=== PATIENT | female | born 1955 | race Caucasian/White ===

== ENCOUNTER 2016-11-02 14:58 | Outpatient (CLI) | payer OTHER | END 2016-11-02 14:59 | disposition home or self-care (01) | DX: R05 Cough (principal); R68.83 Chills (without fever); R61 Generalized hyperhidrosis ==

== ENCOUNTER 2016-11-23 09:23 | Outpatient (CLI) | payer OTHER | END 2016-11-23 09:24 | disposition home or self-care (01) | DX: Z53.9 Procedure and treatment not carried out, unspecified reason (principal) ==

== ENCOUNTER 2016-12-10 09:25 | Outpatient (CLI) | payer OTHER | END 2016-12-10 09:26 | disposition home or self-care (01) | DX: R22.1 Localized swelling, mass and lump, neck (principal) ==

== ENCOUNTER 2016-12-10 09:28 | Outpatient (CLI) | payer OTHER | END 2016-12-10 09:29 | disposition home or self-care (01) | DX: Z12.31 Encounter for screening mammogram for malignant neoplasm of breast (principal) ==

== ENCOUNTER 2017-03-18 08:01 | Outpatient (CLI) | payer OTHER ==
[2017-03-20 17:55] LABS: TEST RESULT REPORT (())
== END 2017-03-18 08:02 | disposition home or self-care (01) ==
LOC: LAB 08:01
PROVIDERS: ATTEND Internal Medicine
DX: M25.50 Pain in unspecified joint (principal)
CPT/HCPCS: 36415; 81599; 86618

== ENCOUNTER 2018-03-06 12:05 | Outpatient (CLI) | payer OTHER ==
--- NOTE | 2018-03-06 17:32 | XRAY Report ---
Procedure Date: 03/06/2018 Accession Number: [id number] / [id number] Procedure: XR - Hip w/Pelvis 2-3V LT CPT Code: FULL RESULT: EXAM: Hip w/Pelvis 2-3V LT DATE: 03/06/2018 12:28 PM CLINICAL HISTORY: LEFT HIP PAIN AFTER DROPPING WOOD COMPARISON: 06/21/[address] TECHNIQUE: 1 view of the pelvis and 1 view of the hip. FINDINGS: Bones: No fracture or bone lesion. Joints: The bilateral hip, pubis symphysis, and sacroiliac joints are anatomically aligned. No significant degenerative change. Soft Tissues: Normal. No soft tissue swelling. IMPRESSION: Unremarkable pelvis and left hip radiography. [facility]
--- NOTE | 2018-03-06 17:35 | XRAY Report ---
Procedure Date: 03/06/2018 Accession Number: [id number] / [id number] Procedure: XR - Foot 3 View RT CPT Code: FULL RESULT: EXAM: Foot 3 View RT DATE: 03/06/2018 12:28 PM CLINICAL HISTORY: Right foot PAIN AFTER DROPPING WOOD COMPARISON: None. TECHNIQUE: 3 views. FINDINGS: Bones: No fractures. Degenerative changes of the navicular with sclerosis and cyst formation. Plantar calcaneal spur. Joints: Degenerative change at the forefoot midfoot and midfoot hindfoot junctions. No subluxations. Second toe hammertoe deformity Soft Tissues: No radiopaque foreign body. No soft tissue swelling. IMPRESSION: Degenerative changes right foot without superimposed acute findings. [facility]
== END 2018-03-06 12:06 | disposition home or self-care (01) ==
LOC: DI 12:05
PROVIDERS: ATTEND Internal Medicine
DX: M25.552 Pain in left hip (principal); M19.071 Primary osteoarthritis, right ankle and foot

== ENCOUNTER 2018-12-02 08:14 | Outpatient (CLI) | payer OTHER ==
--- NOTE | 2018-12-03 08:34 | MRI Report ---
Reason: HIP PAIN,THIGH PAIN Procedure Date: 12/02/2018 Accession Number: [id number] / [id number] Procedure: MRI - Lumbar Spine W/O CPT Code: FULL RESULT: EXAM: MRI LUMBAR SPINE WITHOUT CONTRAST EXAM DATE: 12/02/2018 09:00 AM. CLINICAL HISTORY: Low back pain. Left hip and thigh pain and leg pain. COMPARISON: None. TECHNIQUE: Multiplanar, multisequence T1-weighted and fluid-sensitive sequences of the lumbar spine from T12 to S1 without contrast. Other: None. FINDINGS: Spinal Canal: The conus terminates at L1-L2. The conus medullaris and cauda equina are unremarkable. Alignment: Grade 1 anterolisthesis at L4-L5 by approximately 4 mm. Mild dextroconvex scoliosis. Bone Marrow: Five [id number] lumbar vertebral bodies are assumed. No gross fractures or bone lesions. No bone marrow replacement. Disk Levels/Facets: L5-S1: Moderate left and moderate to severe right facet arthropathy. Small to moderate size right facet joint effusion. There is an approximately 5 x 6 x 4 mm synovial cyst arising from the medial aspect of the right facet joint which abuts the right lateral aspect of the thecal sac and the right S1 nerve. No stenoses. There is a 1.1 x 0.7 x 0.8 cm synovial cyst arising from the posterior inferior aspect of the right facet joint. L4-L5: Moderate to severe disk space narrowing. Minimal disk bulge. Moderate to severe ligamentum flavum thickening. Severe facet arthropathy. Mild canal stenosis. Mild right and mild to moderate left foraminal stenoses. L3-L4: Mild disk space narrowing. Small disk bulge. Mild to moderate facet arthropathy. Mild canal stenosis. Minimal foraminal narrowing. L2-L3: Small left foraminal disk protrusion. Mild left facet arthropathy. Mild canal stenosis. Mild left foraminal stenosis. L1-L2: Mild to moderate left and moderate facet arthropathy. Small right foraminal disk protrusion. Mild right foraminal stenosis. T12-L1: Small posterior left paracentral disk extrusion. Mild canal stenosis. Mild to moderate right facet arthropathy. No foraminal stenoses. There are intra sacral meningeal or perineural cysts at the S2 level. Musculature: Mild to moderate fatty atrophy of the posterior paraspinal muscles. Other: The partially visualized retroperitoneum is unremarkable. IMPRESSION: 1. Multilevel degenerative disk changes and facet arthropathy. The more significant levels are at L4-L5 and L5-S1. 2. Grade 1 degenerative anterolisthesis at L4-L5. Mild canal stenosis. Mild to moderate left and mild right foraminal stenoses. 3. A 5 x 6 x 4 mm synovial cyst arising from the medial aspect of the right L5-S1 facet joint which abuts the right lateral aspect of the thecal sac and right S1 nerve. No stenoses. Comment: The following findings are so common in adults without low back pain that while we report their presence, they must be interpreted with caution and in the context of the clinical situation. (Reference Mayrak et al, Spine 2001) Prevalence of findings in patients without low back pain: Disk degeneration (any evidence): 92% Disk desiccation/T2 signal loss: 83% Disk height loss: 56% Disk bulge: 64% Disk protrusion: 32% Annular tear/high intensity zone: 38% [facility]
--- NOTE | 2018-12-03 08:34 | MRI Report ---
Reason: HIP PAIN,THIGH PAIN Procedure Date: 12/02/2018 Accession Number: [id number] / [id number] Procedure: MRI - Femur/Thigh LT W/O CPT Code: FULL RESULT: EXAM: LEFT HIP AND THIGH MRI WITHOUT CONTRAST EXAM DATE: 12/02/2018 09:27 AM. CLINICAL HISTORY: Left hip and thigh pain. Low back pain. No known injury. COMPARISON: FEMUR/THIGH LT W/O 12/02/2018 10:03 AM. TECHNIQUE: Multiplanar, multisequence T1-weighted and fluid-sensitive, small ufkxk-[id number] sequences of the hip , large fgodw-ia-nosi sequences of the pelvis, and sequences of the left thigh without contrast. Other: None. FINDINGS: Bones: No fractures or subluxations. No marrow edema or bone lesions. Left Hip: No acetabular retroversion. Femoral head/neck offset is within normal limits. No effusion or loose bodies. The articular cartilage is intact. There is a linear T2 hyperintense focus at the anterosuperior aspect of the left acetabular labrum suspicious for tear. The ligamentum teres is intact. Other Joints: Degenerative changes of the visualized lower lumbar spine. The sacroiliac joints and pubic symphysis are unremarkable. The right hip is unremarkable. Musculature: There is a mild amount of edema within the left piriformis muscle. Small amount of free fluid around the left piriformis muscle and between the left gluteus medius muscle and left piriformis muscle. Fatty atrophy of the left gluteus minimus muscle. The left gluteus minimus tendon is intact. Mild left gluteus medius tendinosis. Mild edema within the lateral aspect of the left gluteus medius muscle. There is an approximately 13.2 cm superior to inferior by 4.4 cm AP by 1.1 cm medial to lateral, heterogeneous, subfascial collection along the lateral margin of the vastus lateralis muscle. A fluid-fluid level is present within the collection. The more nondependent fluid is hyperintense. On the T2-weighted images and slightly hyperintense on the T1-weighted images. The more dependent fluid is slightly hyperintense on the T2-weighted images and T1-weighted images. There is an approximately 4.6 x 1.1 x 0.6 cm irregularly-shaped focus of tissue within the nondependent component of the fluid. The subfascial collection or mass compresses the lateral aspect of the vastus lateralis muscle. Mild edema within the distal aspect of the vastus lateralis muscle. Moderate grade partial tear at the proximal end of the left common hamstring tendon. Moderate high-grade partial tear at the proximal end of the right common hamstring tendon. The ischiofemoral space is normal. Pelvic Cavity: There are multiple uterine fibroids. 1 of the larger uterine fibroids measures approximately 2.6 x 1.1 x 1.2 cm. No lymphadenopathy or free fluid. A fat-containing right inguinal hernia is present. Other: There is a small amount of free fluid and edema around the left sciatic nerve. Small amount of fluid at the left trochanteric bursa. Mild subcutaneous edema at the lateral aspect of the thigh. IMPRESSION: 1. There is a mild amount of edema within the left piriformis muscle. Small amount of free fluid around the left piriformis muscle and between the left gluteus medius muscle and left piriformis muscle. The findings may represent strain or an inflammatory process. An infectious or neoplastic process is thought to be less likely, but cannot be entirely excluded. Consider follow-up MR imaging without and with intravenous contrast in 4-6 weeks to evaluate for interval change. 2. Fatty atrophy of the left gluteus minimus muscle. The left gluteus minimus tendon is intact. Mild left gluteus medius tendinosis. Mild edema within the lateral aspect of the left gluteus medius muscle. 3. There is an approximately 13.2 cm superior to inferior by 4.4 cm AP by 1.1 cm medial to lateral, heterogeneous, subfascial collection along the lateral margin of the vastus lateralis muscle. A fluid-fluid level is present within the collection. The differential may include a hematoma or, less likely an abscess. A hemorrhagic neoplasm is also thought to be less likely, but cannot be entirely excluded. Consider follow-up MR imaging without and with intravenous contrast in 4-6 weeks to evaluate for interval change. Clinical correlation with regards to infection or previous trauma. 4. Moderate grade partial tear at the proximal end of the left common hamstring tendon. Moderate high-grade partial tear at the proximal end of the right common hamstring tendon 5. Findings suspicious for tear at the anterosuperior aspect of the left acetabular labrum. 6. No acute fracture. 7. Small amount of free fluid and edema around the left sciatic nerve which may be posttraumatic or inflammatory. 8. Left trochanteric bursitis. [facility] MUSCULOSKELETAL RADIOLOGY SECTION
== END 2018-12-02 08:15 | disposition home or self-care (01) ==
LOC: DI 08:14
PROVIDERS: ATTEND Internal Medicine
DX: M51.36 Other intervertebral disc degeneration, lumbar region (principal); M48.061 Spinal stenosis, lumbar region without neurogenic claudication; M70.62 Trochanteric bursitis, left hip; S76.812A Strain of other specified muscles, fascia and tendons at thigh level, left thigh, initial encounter
CPT/HCPCS: 72148

== ENCOUNTER 2018-12-05 10:21 | Emergency (ER) | payer OTHER ==
[2018-12-05] MEDS ORDERED: TETANUS/DIPHTHERIA/PERTUSSIS 0.5 ML SYRINGE IM ONE (12:37)
[2018-12-05] MEDS ORDERED: DOXYCYCLINE 100 MG TABLET PO STA (12:37)
[2018-12-05] MEDS ORDERED: BACITRACIN OINT TOP STA (12:37)
[2018-12-05] MEDS ORDERED: BACITRACIN OINT TOP ONE (12:42)
--- NOTE | 2018-12-05 12:42 | ED Physician Documentation ---
PD HPI LOWER EXT INJURY - Stated complaint Stated Complaint: R KNEE LAC - Chief complaint Chief Complaint: Laceration - Additional information Additional information: 63-year-old female presents the emergency department with a laceration to her right knee which occurred 3 days ago. The patient has been using butterflies at home and now reports that the wound is red and had drainage. No reports of fevers or chills. The patient reports pain at the site of the laceration. No other area of injury. The patient'sTetanus shot is not up-to-date. 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 : None HEENT: None Psych: None Musculoskeletal: None Derm: None - Past Surgical History Past Surgical History: Yes General: Hiatal hernia repair Ortho: Rotator cuff repair, Arthroscopic surgery /COMMERCIAL MARKETING SPECIALIST: section - Present Medications Home Medications: Ambulatory Orders Medication Instructions Recorded Confirmed Estradiol [Estrace] 0.5 mg PO DAILY 02/11/13 10/02/15 Medroxyprogesterone Acetate 2.5 mg PO DAILY 02/11/13 10/02/15 Pantoprazole Sodium [Protonix] 40 mg PO DAILY 02/11/13 10/02/15 Atenolol 50 mg PO DAILY 11/05/14 10/02/15 busPIRone [Buspar] 15 mg PO BID 08/31/15 10/02/15 Venlafaxine HCl [Venlafaxine HCl 75 mg PO Q48H 09/06/15 10/02/15 ER] - Allergies Allergies/Adverse Reactions: Allergies Allergy/AdvReac Type Severity Reaction Status Date / Time No Known Drug Allergies Allergy Verified 10/02/15 11:41 - Social History Does the pt smoke?: No Smoking Status: Never smoker Does the pt drink ETOH?: No Does the pt have substance abuse?: No - Immunizations Immunizations are current?: Yes - POLST Patient has POLST: No PD ED PE NORMAL - General General: Alert and oriented X 3, No acute distress - HEENT HEENT: Atraumatic, PERRL, EOMI, Ears normal - Extremities Extremities: Normal ROM s pain - Neuro Neuro: Alert and oriented X 3, Normal speech - Psych Psych: Normal affect PD ED PE EXPANDED - Derm SKin visual: 1 - laceration (The patient has an old laceration below the kneeErythematous changes there is surrounding. There is no palpable abscess or fluid collection. The wound currently is not draining. The knee has no evidence of effusion clinically. Approximately the patient has no pain. Distally there is no swelling and the patient has normal cap refill and a normal dorsalis pedis pulse) Results - Vitals Vitals: Vital Signs - 24 hr 12/05/18 10:53 Temperature 36.9 C Heart Rate 91 Respiratory 20 Rate Blood Pressure 185/106 H O2 Saturation 97 Oxygen O2 Source Room air PD MEDICAL DECISION MAKING - ED course ED course: The patient has a laceration which occurred several days ago, now the laceration is infected. The patient's tetanus shot will be updated, the wound will be cleaned and dressed with bacitracin. The patient will be started on a course of doxycycline. Presently, I would not close this wound secondary to the wound being old and acutely infected. I recommended having a wound recheck on Saturday. The patient will return to the emergency department for any worsening or any concerns Departure - Departure Disposition: 01 Home, Self Care Clinical Impression: Wound infection Condition: Good Instructions: ED Wound Care, ED Sutr Wound Infec Ch Follow-Up: Danita Espitia MD [Primary Care Provider] - Within 1 week Comments: Please follow-up with your primary care on Saturday for a wound recheck. Please return for any worsening or concerns
[2018-12-05 13:13] VITALS: BP 170/102
== END 2018-12-05 12:55 | disposition home or self-care (01) ==
LOC: ED 10:21
DX: S81.011A Laceration without foreign body, right knee, initial encounter (principal); L08.9 Local infection of the skin and subcutaneous tissue, unspecified; W01.198A Fall on same level from slipping, tripping and stumbling with subsequent striking against other object, initial encounter; Y93.H9 Activity, other involving exterior property and land maintenance, building and construction; Z23 Encounter for immunization; I10 Essential (primary) hypertension
CPT/HCPCS: 90471; 90715; 99283; A9270

== ENCOUNTER 2019-04-16 | Outpatient (CLI) | payer OTHER | END 2019-04-16 09:42 | disposition home or self-care (01) | DX: B35.1 Tinea unguium (principal) | CPT/HCPCS: 36415; 80076 ==

== ENCOUNTER 2019-05-11 20:45 | Inpatient (IN) | payer OTHER, MEDICARE ==
[2019-05-11] MEDS ORDERED: SODIUM CHLORIDE 0.9% 1,000 ML IV ONE (21:07)
[2019-05-11 21:37] LABS: BASOPHILS % (AUTO) 0.3 %; EOSINOPHILS % (AUTO) 0.2 %; HGB - HEMOGLOBIN 10.4 g/dL (12.0-16.0); LYMPHOCYTES # (AUTO) 1.7 10^3/uL (1.5-3.5); LYMPHOCYTES % (AUTO) 13.7 %; MEAN CORPUSCULAR HEMOGLOBIN 30.9 pg (27.0-31.0); MEAN CORPUSCULAR VOLUME 93.5 fL (81.0-99.0); MEAN PLATELET VOLUME 9.3 fL (7.9-10.8); MONOCYTES # (AUTO) 1.1 10^3/uL (0.0-1.0); MONOCYTES % (AUTO) 8.4 %; NEUTROPHILS # (AUTO) 9.6 10^3/uL (1.5-6.6); NEUTROPHILS % (AUTO) 76.5 %; PLT - PLATELET COUNT 319 10^3/uL (130-450); RED BLOOD COUNT 3.37 10^6/uL (4.20-5.40); RED CELL DISTRIBUTION WIDTH 12.4 % (12.0-15.0); WHITE BLOOD COUNT 12.5 x10^3/uL (4.8-10.8)
[2019-05-11 21:43] LABS: INR 1.3 (0.8-1.2); PT - PROTHROMBIN TIME 14.4 secs (9.9-12.6)
[2019-05-11 21:50] LABS: ALBUMIN 2.7 g/dL (3.2-5.5); ALBUMIN/GLOBULIN RATIO 0.7 (1.0-2.2); BILIRUBIN,TOTAL 0.2 mg/dL (0.2-1.0); CALCIUM 8.6 mg/dL (8.5-10.3); CREATININE 1.1 mg/dL (0.4-1.0); PARTIAL THROMBOPLASTIN TIME 31.2 secs (24.9-33.3); TOTAL PROTEIN 6.8 g/dL (6.7-8.2)
--- NOTE | 2019-05-11 21:51 | ED Physician Documentation ---
PD HPI ABD PAIN - Stated complaint Stated Complaint: FEVER/R SIDE PX - Chief complaint Chief Complaint: Abd Pain - History obtained from History obtained from: Patient, Family - History of Present Illness Timing - onset: Enter time (1999), Today Timing - duration: Minutes Timing - details: Abrupt onset, Still present Quality: Sharp, Pain Location: RUQ, Epigastric Radiation: Right flank Improved by: Other (nothing) Worsened by: No: Palpation Associated symptoms: Fever, Nausea, Vomiting, Diarrhea Similar symptoms before: Has not had sx before Recently seen: Not recently seen - Additional information Additional information: Previously well 63-year-old female has had the onset of nausea vomiting and diarrhea about 1 week ago with low-grade fever she has had low-grade fever all week and today she had a spike in her fever and suddenly developed pain in the right flank area. She denies any urinary symptoms associated with this illness. She has not had the symptoms previously. She has been able to drink water she has not been eating much. She does indicate that she stopped drinking wine about 2 weeks ago and she was drinking a lot of wine prior to that. Review of Systems Constitutional: reports: Fever, Chills, Myalgias, Fatigue Eyes: denies: Decreased vision Ears: denies: Ear pain Nose: denies: Rhinorrhea / runny nose, Congestion Throat: denies: Sore throat Cardiac: denies: Chest pain / pressure, Palpitations, Pedal edema, Calf pain Respiratory: denies: Dyspnea, Cough, Hemoptysis, Wheezing GI: reports: Abdominal Pain, Nausea, Vomiting, Diarrhea : denies: Dysuria, Frequency Skin: denies: Rash Musculoskeletal: reports: Back pain. denies: Neck pain, Extremity pain Neurologic: reports: Generalized weakness. 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: section - Present Medications Home Medications: Ambulatory Orders Medication Instructions Recorded Confirmed Estradiol [Estrace] 0.5 mg PO DAILY 02/11/13 10/02/15 Pantoprazole Sodium [Protonix] 40 mg PO DAILY 02/11/13 10/02/15 RX: Medroxyprogesterone Acetate 2.5 mg PO DAILY 02/11/13 10/02/15 RX: Atenolol 50 mg PO DAILY 11/05/14 10/02/15 RX: busPIRone [Buspar] 15 mg PO BID 08/31/15 10/02/15 Venlafaxine HCl [Venlafaxine HCl 75 mg PO Q48H 09/06/15 10/02/15 ER] RX: Doxycycline Hyclate 100 mg PO BID #20 capsule 12/05/18 - Allergies Allergies/Adverse Reactions: Allergies Allergy/AdvReac Type Severity Reaction Status Date / Time No Known Drug Allergies Allergy Verified 05/11/19 21:03 - Social History Does the pt smoke?: No Smoking Status: Never smoker Does the pt drink ETOH?: No Does the pt have substance abuse?: No - Immunizations Immunizations are current?: Yes - POLST Patient has POLST: No PD ED PE NORMAL - Vitals Vital signs reviewed: Yes (Febrile tachycardic and hypertensive) - General General: Alert and oriented X 3, Well developed/nourished, Other (Flushed appearing woman who is crying in pain) - HEENT HEENT: Atraumatic, PERRL, EOMI - Neck Neck: Supple, no meningeal sign, No bony TTP - Cardiac Cardiac: No murmur, Other (Tachycardic) - Respiratory Respiratory: No respiratory distress, Clear bilaterally - Abdomen Abdomen: Soft, Other (There is midline epigastric tenderness and right upper quadrant tenderness to palpation there is no tenderness to bimanual palpation of the right kidney.There is not specific right lower quadrant or suprapubic tenderness.) - Back Back: No CVA TTP, No spinal TTP - Derm Derm: Normal color, Warm and dry, No rash - Extremities Extremities: No deformity, No edema - Neuro Neuro: Alert and oriented X 3, document analyst 2-12 intact, No motor deficit, No sensory deficit, Normal speech Eye Opening: Spontaneous Motor: Obeys Commands Verbal: Oriented GCS Score: 15 - Psych Psych: Other (Mood is painful affect is flat) Results - Vitals Vitals: Vital Signs - 24 hr 05/11/19 05/11/19 05/11/19 20:58 21:08 21:33 Temperature 38.3 C H 39.1 C H Heart Rate 111 H 109 H 92 Respiratory 20 19 19 Rate Blood Pressure 138/76 H 155/75 H 136/73 H O2 Saturation 95 100 99 05/11/19 05/11/19 05/11/19 21:51 22:28 22:30 Temperature 37.6 C H Heart Rate 91 97 86 Respiratory 17 27 H 19 Rate Blood Pressure 136/73 H 143/103 H 137/82 H O2 Saturation 99 99 86 L 05/11/19 05/11/19 05/11/19 22:52 23:00 23:15 Temperature 38.1 C H Heart Rate 83 Respiratory 12 Rate Blood Pressure 139/74 H O2 Saturation 85 L 97 05/11/19 23:30 Temperature Heart Rate 83 Respiratory 19 Rate Blood Pressure 138/73 H O2 Saturation 98 Oxygen O2 Source Nasal cannula Oxygen Flow Rate 3 - Labs Labs: Laboratory Tests 05/11/19 05/11/19 05/11/19 21:20 21:20 21:20 WBC 12.5 H RBC 3.37 L Hgb 10.4 L Hct 31.5 L MCV 93.5 MCH 30.9 MCHC 33.0 RDW 12.4 Plt Count 319 MPV 9.3 Neut # (Auto) 9.6 H Lymph # (Auto) 1.7 [place] # (Auto) 1.1 H Eos # (Auto) 0.0 Baso # (Auto) 0.0 Absolute Nucleated RBC 0.00 Nucleated RBC % 0.0 PT 14.4 H INR 1.3 H APTT 31.2 Sodium 138 Potassium 2.8 L Chloride 94 L Carbon Dioxide 30 Anion Gap 14.0 H BUN 13 Creatinine 1.1 H Estimated GFR (MDRD) 50 L Glucose 113 H Lactic Acid Calcium 8.6 Magnesium Total Bilirubin 0.2 AST 17 ALT 12 Alkaline Phosphatase 77 Total Protein 6.8 Albumin 2.7 L Globulin 4.1 Albumin/Globulin Ratio 0.7 L Lipase 41 Urine Color Urine Clarity Urine pH Ur Specific [place] Urine Protein Urine Glucose (UA) Urine Ketones Urine Occult Blood Urine Nitrite Urine Bilirubin Urine Urobilinogen Ur Leukocyte Esterase Urine RBC Urine WBC Ur Squamous Epith Cells Urine Bacteria Ur Microscopic Review Urine Culture Comments 05/11/19 05/11/19 05/11/19 21:20 21:20 21:55 WBC RBC Hgb Hct MCV MCH MCHC RDW Plt Count MPV Neut # (Auto) Lymph # (Auto) [place] # (Auto) Eos # (Auto) Baso # (Auto) Absolute Nucleated RBC Nucleated RBC % PT INR APTT Sodium Potassium Chloride Carbon Dioxide Anion Gap BUN Creatinine Estimated GFR (MDRD) Glucose Lactic Acid 1.0 Calcium Magnesium 1.7 Total Bilirubin AST ALT Alkaline Phosphatase Total Protein Albumin Globulin Albumin/Globulin Ratio Lipase Urine Color YELLOW Urine Clarity HAZY Urine pH >=9.0 H Ur Specific [place] 1.015 Urine Protein 100 H Urine Glucose (UA) NEGATIVE Urine Ketones TRACE Urine Occult Blood LARGE H Urine Nitrite NEGATIVE Urine Bilirubin NEGATIVE Urine Urobilinogen 0.2 (NORMAL) Ur Leukocyte Esterase SMALL H Urine RBC 6-10 H Urine WBC 11-25 H Ur Squamous Epith Cells FEW Squamous Urine Bacteria Few Ur Microscopic Review INDICATED Urine Culture Comments INDICATED - Rads (name of study) CT ab/pel w Radiology: Prelim report reviewed (Impression: Left pyelonephritis. No abscess. Cholelithiasis.), EMP read indepedently, See rad report Procedures - Bedside sono Bedside sono by EMP: These bedside ultrasound the right kidney is imaged I am unable to elicit pain sonographically to the kidney itself. There is no evidence of hydronephrosis. The liver is generally enlarged down into the lower abdomen. There is some sonographic tenderness to the epigastric region. PD MEDICAL DECISION MAKING - ED course Complexity details: reviewed old records, reviewed results, re-evaluated patient, considered differential, d/w patient, d/w family ED course: 63-year-old female with a fever for the past week as well as vomiting and diarrhea has spiked her fever today and accompanied by this she has some right- sided abdominal pain. She is found to have pyelonephritis on the left side and she does have a tender left kidney. She does not have a tender right kidney. She does have a large gallstone and an enlarged liver. She presents to the emergency department tachycardic febrile with a normal blood pressure and appearing ill. She is administered intravenous cefepime empirically at the time of admission to the emergency department.Patient has improvement with intravenous Tylenol and Dilaudid which causes some respiratory depression. The patient is at risk for sepsis and admission is indicated. Dr Collado is consulted in the case and graciously agrees to care for the patient in the hospital. Departure - Departure Disposition: [address] [facility] DC/Xfer Clinical Impression: Cholelithiasis, Pyelonephritis Condition: Serious Discharge Date/Time: 05/12/19 00:59
[2019-05-11] MEDS ORDERED: ACETAMINOPHEN 1,000 MG/100 ML 100 ML IV STA (21:53)
[2019-05-11] MEDS ORDERED: CEFEPIME 1 GM in SODIUM CHLORIDE 0.9% MINIBAG 100 ML IV STA (21:53)
[2019-05-11] MEDS ORDERED: HYDROmorphone 1 MG/ML CARPUJECT IVP STA ×2 (21:54→22:33)
[2019-05-11] MEDS ORDERED: ONDANSETRON 4 MG/2 ML VIAL IVP STA (21:54)
[2019-05-11] MEDS ORDERED: IOVERSOL 320 100 ML VIAL IVP ONE ×2 (21:59→22:24)
[2019-05-11 22:04] LABS: BILIRUBIN,URINE NEGATIVE (NEGATIVE); GLUCOSE, URINE (UA) NEGATIVE (NEGATIVE); KETONES,URINE (UA) TRACE mg/dL (NEGATIVE); LEUKOCYTE ESTERASE, URINE SMALL (NEGATIVE); NITRITE,URINE NEGATIVE (NEGATIVE); OCCULT BLOOD,URINE LARGE (NEGATIVE); PH,URINE >=9.0 PH (5.0-7.5); PROTEIN,URINE 100 mg/dL (NEGATIVE); UROBILINOGEN,URINE 0.2 (NORMAL) E.U./dL (NORMAL)
[2019-05-11 22:09] LABS: CLARITY,URINE HAZY (CLEAR)
[2019-05-11] MEDS: POTASSIUM CHLOR 10 MEQ/100 ML 10 MEQ/100 ML BAG IV SCH ×2 (22:15→23:49)
[2019-05-11 22:21] LABS: BACTERIA,URINE Few /HPF (None Seen); SQUAMOUS EPITHELIAL CELL,UR FEW Squamous (<= Few)
--- NOTE | 2019-05-11 22:25 | XRAY Report ---
Reason: fever Procedure Date: 05/11/2019 Accession Number: [id number] / [id number] Procedure: XR - Chest 1 View X-Ray CPT Code: 72210 FULL RESULT: EXAM: CHEST RADIOGRAPHY EXAM DATE: 05/11/2019 09:49 PM. CLINICAL HISTORY: Fever. COMPARISON: XR ACUTE ABDOMEN SERIES 06/21/2010 11:05 AM. TECHNIQUE: 1 view. FINDINGS: Lungs/Pleura: No dense consolidation. No large effusion or pneumothorax. No pulmonary edema. Mediastinum: Heart and mediastinal contours are unremarkable. Other: Suture anchors at the left humeral head. IMPRESSION: No acute radiographic pulmonary abnormalities. [facility]
--- NOTE | 2019-05-11 23:02 | CT Report ---
Reason: Right sided abdominal pain fever Procedure Date: 05/11/2019 Accession Number: [id number] / [id number] Procedure: CT - Abdomen/Pelvis W CPT Code: FULL RESULT: EXAM: CT ABDOMEN AND PELVIS EXAM DATE: 05/11/2019 10:25 PM. CLINICAL HISTORY: Right sided abdominal pain fever. COMPARISONS: None. TECHNIQUE: Routine helical CT imaging was performed through the abdomen and pelvis. IV contrast: 100 cc Optiray 320. Enteric contrast: No. Reconstructions: Coronal and sagittal. In accordance with CT protocol optimization, one or more of the following dose reduction techniques were utilized for this exam: automated exposure control, adjustment of mA and/or KV based on patient size, or use of iterative reconstructive technique. FINDINGS: ABDOMEN: Lung Bases: Incompletely included lower lungs demonstrate scattered atelectasis. Heart size is within normal limits. No basilar effusions. Small hiatal hernia. Liver: Unremarkable. Spleen: Unremarkable. Pancreas: Unremarkable. Gallbladder/Bile Ducts: Cholelithiasis. Biliary tree is normal caliber. Adrenal Glands: Unremarkable. Kidneys: Right kidney demonstrates no hydronephrosis, calculi, or mass. Patchy hypoenhancement in the left kidney including a 2.5 cm left interpolar wedge-shaped area of hypoenhancement. Increase left perinephric stranding. No hydronephrosis or calculi. Peritoneum/Mesentery/Bowel: No free fluid, free air, or collection. No intestinal obstruction or inflammation. The appendix is within normal limits. Lymph nodes: No mesenteric, periportal, or retroperitoneal lymphadenopathy. Vasculature: Abdominal aorta is nonaneurysmal. Portal vein is patent. Hepatic veins are patent. PELVIS: The bladder is unremarkable for the degree of distention. Uterus is present. No obvious abnormally enlarged adnexal abnormalities. No pelvic lymphadenopathy. Large fat filled right inguinal hernia. Bones: No suspicious osseous lesions. Grade 1 anterolisthesis of L4 and L5 with severe degenerative disk disease. IMPRESSION: Left pyelonephritis. No abscess. Cholelithiasis. RADIA
[2019-05-11] MEDS ORDERED: ACETAMINOPHEN 325 MG TABLET PO PRN (23:58)
[2019-05-12] MEDS ORDERED: POTASSIUM CHLORIDE 20 MEQ TABLET PO STA (00:09)
--- NOTE | 2019-05-12 00:12 | HISTORY & PHYSICAL EXAMINATION ---
Chief Complaint - Chief Complaint Chief Complaint: fever, abdominal pain, vomiting, diarrhea History of Present Illness - Admitted From Admitted From:: [facility] ED - History Obtained From Records Reviewed: yes History obtained from: patient - History of Present Illness HPI Comment/Other: Patient seen and examined on 05/12/19 around 2330pm Patient is a 63 y/o female who presented to the ED with complain of fever and chills. She was initially feeling well earlier in the day and was able to run errands. However when she arrived home she started shaking. She took her temperature and realized it was 104F. As a result her brought her to the ED. Upon presentation to the ED she appeared flushed and was tachycardic. She also complained of lower back pain, suprapubic pain and right flank pain. She denied burning on urination, hematuria, change in color or odor of her urine. She has been experiencing nausea, vomiting and diarrhea over the past 1 week. She decided to quit drinking 2 weeks ago. She used to drink 2 bottles of wine daily. She denies withdrawal seizures but is not certain if she has had any other withdrawal symptoms. She denies chest pain or MINA. She reports episodes of anxiety during which it becomes hard to breath. She was found to have a WBC of 12.[address] scan of the abd/pelvis showed some perinephric stranding suggestive of pyelonephritis. She also had a potassium of 2.8. As a result she is being admitted for further management. History - Past Medical History Cardiovascular: reports: Hypertension Respiratory: reports: None Endocrine/Autoimmune: reports: None GI: reports: GERD INDIGO VAT TENDER CLOTH: reports: None : reports: None HEENT: reports: None Psych: reports: Depression Musculoskeletal: reports: Other (right shoulder post-op infection) Derm: reports: None MRSA Hx?: No - Past Surgical History General: reports: Hiatal hernia repair Ortho: reports: Rotator cuff repair (bilateral), Arthroscopic surgery /INDIGO VAT TENDER CLOTH: reports: section (X3) - Family & Social History Family History Comment/Other: Mother alive with history of hypertension. Father from colon cancer Social History Notes: She is a nonsmoker. It is reported that she has a significant history of alcohol consumption but stopped drinking about 2 weeks ago. She uses medical marijuana. - POLST Patient has POLST: No POLST Status: Full Code Meds/Allgy - Home Medications Home Medications: Ambulatory Orders Medication Instructions Recorded Confirmed Estradiol [Estrace] 0.5 mg PO DAILY 02/11/13 10/02/15 Medroxyprogesterone Acetate 2.5 mg PO DAILY 02/11/13 10/02/15 Pantoprazole Sodium [Protonix] 40 mg PO DAILY 02/11/13 10/02/15 Atenolol 50 mg PO DAILY 11/05/14 10/02/15 busPIRone [Buspar] 15 mg PO BID 08/31/15 10/02/15 Venlafaxine HCl [Venlafaxine HCl 75 mg PO Q48H 09/06/15 10/02/15 ER] Doxycycline Hyclate 100 mg PO BID #20 capsule 12/05/18 - Allergies Allergies/Adverse Reactions: Allergies Allergy/AdvReac Type Severity Reaction Status Date / Time No Known Drug Allergies Allergy Verified 05/11/19 21:03 Review of Systems - Constitutional Constitutional: reports: Fever, Chills, Weakness, Poor appetite, Other (flushed) - Eyes Eyes: denies: Amaurosis, Blurred vision, Vision loss, Dipolpia - Ears, Nose & Throat Ears, Nose & Throat: denies: Nasal pain, Nasal discharge, Sore throat, Hoarseness - Cardiovascular Cariovascular: reports: Palpitations. denies: Chest pain, Lightheadedness, Syncope, Exertional dyspnea - Respiratory Respiratory: denies: Cough, Sputum production, Wheezing, Hemoptysis, SOB at rest, SOB with exertion - Gastrointestinal Gastrointestinal: reports: Abdominal pain, Diarrhea, Nausea, Vomiting, Reflux/heartburn. denies: Abdominal distention, Constipation, Change in bowel habits, Bloody stools, Coffee grounds emesis - Genitourinary Genitourinary: reports: Flank pain (right). denies: Dysuria, Frequency, Urgency, Hematuria - Musculoskeletal Musculoskeletal: denies: Muscle pain, Back pain, Joint pain - Integumentary Integumentary: denies: Rash, Pruritis, Lesions - Neurological Neurological: denies: Focal weakness, Headache, Dizziness, Numbness - Psychiatric Psychiatric: reports: Depression, Anxiety - Endocrine Endocrine: denies: Polyuria, Polydypsia - Hematologic/Lymphatic Hematologic/Lymphatic: denies: Anemia, Bruising, Petechiae Prior Level of Functionality: She is independent of activities of daily living Exam - Vital Signs Vital Signs: Vital Signs x48h Temp Pulse Resp BP Pulse Ox 05/12/19 00:00 81 17 113/70 96 05/11/19 23:30 83 19 138/73 H 98 05/11/19 23:15 38.1 C H 05/11/19 23:00 83 12 139/74 H 97 05/11/19 22:52 85 L 05/11/19 22:30 86 19 137/82 H 86 L 05/11/19 22:28 37.6 C H 97 27 H 143/103 H 99 05/11/19 21:51 91 17 136/73 H 99 05/11/19 21:33 92 19 136/73 H 99 05/11/19 21:08 39.1 C H 109 H 19 155/75 H 100 05/11/19 20:58 38.3 C H 111 H 20 138/76 H 95 - Physical Exam General Appearance: positive: Alert, Moderate distress Eyes Bilateral: positive: Normal inspection, PERRL, EOMI ENT: positive: ENT inspection nml Neck: positive: Nml inspection, No JVD, Trachea midline Respiratory: positive: Chest non-tender, No respiratory distress, Breath sounds nml. negative: Wheezes, Rales, Rhonchi Cardiovascular: positive: No murmur, Tachycardia Abdomen: positive: No organomegaly, Nml bowel sounds, No distention, Tenderness, Guarding. negative: Rebound, Hepatomegaly, Splenomegaly, Mass Back: positive: Nml inspection Skin: positive: Color nml, No rash, Warm, Dry Extremities: positive: Non-tender, Full ROM, Nml appearance, No pedal edema Neurologic/Psychiatric: positive: Oriented x3, CN's nml (2-12), Motor nml, Sensation nml Conclusion/Plan - Problem List (1) Pyelonephritis Conclusion/Plan: Patient started on cefepime. Will continue 2g IV q12hrs Blood and urine cultures pending Tylenol for fever. IV hydration with NS+20mEq KCl at 125mls/hr (2) Hypokalemia Conclusion/Plan: Likely 2/2 n/v/d Will replace and recheck Also check Mg and replace accordingly Zofran for nausea. (3) Hypertension Conclusion/Plan: Will resume atenolol once verified (4) Depression Conclusion/Plan: On venlafaxine (5) GERD (gastroesophageal reflux disease) Conclusion/Plan: On pantoprazole (6) History of alcohol abuse Conclusion/Plan: Patient quit drinking 2 weeks ago because she felt that she needed to stop. She used to drink 2 bottles of wine daily Will monitor for now and order CIWA accordingly. Will order Magnesium sulphate and thiamine - Lab Results Fish Bones: 05/11/19 21:20 05/11/19 21:20 Core Measures - Anticipated LOS I expect patient to be DC'd or transferred within 96 hours.: Yes - DVT/VTE - Prophylaxis VTE/DVT Device ordered at admit?: Yes
[2019-05-12] MEDS ORDERED: ONDANSETRON 4 MG/2 ML VIAL IVP STA (00:23)
[2019-05-12] MEDS ORDERED: MORPHINE 2 MG/ML CARPUJECT IVP STA (00:23)
[2019-05-12] MEDS ORDERED: traZODone 50 MG TABLET PO STA (01:21)
[2019-05-12] MEDS ORDERED: MAGNESIUM SULFATE 2 GRAM 2 GM/50 ML BAG IV ONE (01:22)
[2019-05-12] MEDS: NS W/20 MEQ KCL 1,000 ML IV SCH ×3 (01:28→19:22)
[2019-05-12] MEDS: SODIUM CHLORIDE FLUSH 0.9% 10 ML SYRINGE IVP SCH ×3 (01:28→16:54)
[2019-05-12] MEDS: SODIUM CHLORIDE FLUSH 0.9% 10 ML SYRINGE IVP PRN ×5 (01:28→11:17)
[2019-05-12] MEDS: THIAMINE 100 MG TABLET PO SCH ×2 (01:58→09:14)
[2019-05-12] MEDS: HYDROmorphone 0.5 MG/0.5 ML SYRINGE IVP PRN ×6 (02:53→20:23)
[2019-05-12 05:32] LABS: BASOPHILS % (AUTO) 0.3 %; EOSINOPHILS % (AUTO) 0.3 %; HGB - HEMOGLOBIN 9.4 g/dL (12.0-16.0); LYMPHOCYTES # (AUTO) 1.9 10^3/uL (1.5-3.5); LYMPHOCYTES % (AUTO) 17.5 %; MEAN CORPUSCULAR HEMOGLOBIN 29.9 pg (27.0-31.0); MEAN CORPUSCULAR VOLUME 96.5 fL (81.0-99.0); MEAN PLATELET VOLUME 9.3 fL (7.9-10.8); MONOCYTES % (AUTO) 9.2 %; NEUTROPHILS # (AUTO) 7.7 10^3/uL (1.5-6.6); NEUTROPHILS % (AUTO) 71.5 %; PLT - PLATELET COUNT 302 10^3/uL (130-450); RED BLOOD COUNT 3.14 10^6/uL (4.20-5.40); RED CELL DISTRIBUTION WIDTH 12.7 % (12.0-15.0); WHITE BLOOD COUNT 10.8 x10^3/uL (4.8-10.8)
[2019-05-12] MEDS: ONDANSETRON 4 MG/2 ML VIAL IVP PRN ×2 (05:34→11:17)
[2019-05-12 05:39] LABS: CALCIUM 8.2 mg/dL (8.5-10.3); CREATININE 1.1 mg/dL (0.4-1.0)
[2019-05-12] MEDS: PANTOPRAZOLE 40 MG VIAL IVP SCH (06:20)
--- NOTE | 2019-05-12 08:10 | PROVIDER PROGRESS NOTE ---
Assessment/Plan - Problem List (1) Pyelonephritis Assessment/Plan: L pyelonephritis was diagnosed by CT imaging and abnormal U/A. She is on iv Cefepime (for E coli and Pseud coverage). Await cultures to adjust antibiotics. Plan approx 2 days of iv antibiotics then transition to po Pain meds prn. (2) Abdominal pain Qualifiers: Abdominal location: generalized Qualified Code(s): R10.84 - Generalized abdominal pain Assessment/Plan: The pyelo is on the left. She has gallstones but they are not causing inf lammation or obstruction. Her liver was not described as enlarged or fatty (from alcohol use). Last night she c/o RUQ pain, today, she says it is in the center. She describes to me that she had 1 week of feeling weak, had N/V then dry heaves and no po intake of food or meds. I suspect her abdominal pain is be from the recent vomiting. Dietary advised a mechanical soft diet which was ordered. She did have an appetite for lunch, but took only bites. Continue iv hydration. (3) History of alcohol abuse Assessment/Plan: According to the admission H&P, she stopped drinking alcohol 2 weeks ago, therefore no CIWA protocol was ordered currently. According to th new Reconciled Medication list, she was on daily Antabuse, and she requested this from her PCP recently. Her LFTs, bilirubin, and plts are normal, but INR is elevated slightly. She has been ordered to get Thiamine. Will check PO4, which is often low with alcohol abuse. Her Hgb is low after minimal hydration this admission, therefore will check B12, Folate levels and Iron stores and stool guaic. (4) Cholelithiasis Qualifiers: Cholelithiasis location: gallbladder Cholecystitis acuity: chronic Biliary obstruction: without biliary obstruction Assessment/Plan: Gallstones were seen on CT abd, but no gallbladder obstruction or inflammation. The gallstones would need outpatient follow-up and elective management. She was informed of this. (5) Hypokalemia Assessment/Plan: Likely from N/V/D. Replace and continue in iv hydration fluids. Monitor BMP daily. (6) Depression Assessment/Plan: Will restart her Bupropion bid. The patient gave me some information today: her depression is bad since she did not take her antidepressant for 1 week and she has a "bad relationship" with her daughter. The daughter "found out toay that she is hospitalized, which ruined everything". The daughter "took away" the patient's rights to see her 2 and a half year old granddaughter. She did not tell me details of why. The patient is trying to get a new Counselor, the patient said and she "has wanted to stop drinking alcohol for a long time" and she did stop 2 weeks ago, and requested the Antabuse from her PCP, to prevent restarting. I will request a Social Work consult. (7) Hypertension Assessment/Plan: She has a normal BP today, despite no a.m.antihypertensive meds, probably due to infection and dehydration. Will resume her Atenolol, Lisinopril and Amlodipine when BP excessive, and gove Hold parameters. - Current Meds Current Meds: Current Medications Generic Name Dose Route Start Last Admin Trade Name Freq PRN Reason Stop Dose Admin Hydromorphone HCl 0.5 mg 05/11/19 23:58 05/12/19 06:20 Dilaudid Inj Syringe IVP 0.5 mg Q3H PRN Administration Pain 8 to 10 Potassium Chloride/Sodium Chloride 1,000 mls @ 125 mls/hr 05/11/19 23:45 05/12/19 06:26 Normal Saline 0.9% W/20 Meq Kcl IV 125 mls/hr .Q8H HANSEL Infusion Ondansetron HCl 4 mg 05/11/19 23:58 05/12/19 05:34 Zofran Inj IVP 4 mg Q6HR PRN Administration Nausea / Vomiting Pantoprazole Sodium 40 mg 05/12/19 07:00 05/12/19 06:20 Protonix IVP 40 mg QDAC HANSEL Administration Sodium Chloride 10 ml 05/11/19 23:58 05/12/19 06:26 Normal Saline Flush 0.9% IVP 10 ml PRN PRN Administration NEEDED PER PROVIDER ORDERS Sodium Chloride 10 ml 05/12/19 01:00 05/12/19 01:28 Normal Saline Flush 0.9% IVP 10 ml 0100,0900,1700 HANSEL Administration Thiamine HCl 100 mg 05/12/19 01:42 05/12/19 01:58 Vitamin B-1 PO 100 mg DAILY HANSEL Administration - Lab Result Fish Bone Diagrams: 05/12/19 05:17 08/27/19 05:17 - Additional Planning My Orders: My Active Orders 05/12/19 05:00 PHOSPHORUS [CHEM] Routine Subjective - Subjective Patient Reports: Feeling Better, Pain (Low back pain and mid-abdominal pain ("from dry heaves")) Objective Vital Signs: Vital Signs - 24 hr 05/11/19 05/11/19 05/11/19 20:58 21:08 21:33 Temperature 38.3 C H 39.1 C H Heart Rate 111 H 109 H 92 Heart Rate [ Brachial] Respiratory 20 19 19 Rate Blood Pressure 138/76 H 155/75 H 136/73 H Blood Pressure [Right Brachial artery] O2 Saturation 95 100 99 05/11/19 05/11/19 05/11/19 21:51 22:28 22:30 Temperature 37.6 C H Heart Rate 91 97 86 Heart Rate [ Brachial] Respiratory 17 27 H 19 Rate Blood Pressure 136/73 H 143/103 H 137/82 H Blood Pressure [Right Brachial artery] O2 Saturation 99 99 86 L 05/11/19 05/11/19 05/11/19 22:52 23:00 23:15 Temperature 38.1 C H Heart Rate 83 Heart Rate [ Brachial] Respiratory 12 Rate Blood Pressure 139/74 H Blood Pressure [Right Brachial artery] O2 Saturation 85 L 97 05/11/19 05/12/19 05/12/19 23:30 00:00 00:41 Temperature 36.8 C Heart Rate 83 81 93 Heart Rate [ Brachial] Respiratory 19 17 23 Rate Blood Pressure 138/73 H 113/70 128/79 Blood Pressure [Right Brachial artery] O2 Saturation 98 96 97 05/12/19 05/12/19 05/12/19 01:25 01:30 03:05 Temperature 37.3 C 37.3 C 37.2 C Heart Rate 72 Heart Rate [ 73 78 Brachial] Respiratory 16 18 16 Rate Blood Pressure Blood Pressure 112/65 126/70 [Right Brachial artery] O2 Saturation 96 95 95 05/12/19 05:30 Temperature 36.6 C Heart Rate Heart Rate [ Brachial] Respiratory 16 Rate Blood Pressure Blood Pressure [Right Brachial artery] O2 Saturation 95 Oxygen O2 Source Room air Oxygen Flow Rate 3 I&O (Last 24 Hrs): Intake and Output Totals x24h 05/10/19 05/11/19 05/12/19 23:59 23:59 23:59 Intake Total 1300 770.833 Output Total 600 Balance 1300 170.833 General: Alert, Other (Appears fatigued. Skin is overall very tanned.) HEENT: Other (Dry mucosa) Neck: Supple, No JVD Neuro: Non Focal Cardiovascular: Regular rate, No murmurs Respiratory: No respiratory distress, Breath sounds nml Abdomen: Soft, No tenderness, No hepatospenomegaly Genitourinary: Other (No flank pain) Extremities: No edema - Results Results: Laboratory Results WBC 10.8 x10^3/uL (4.8-10.8) 05/12/19 05:17 RBC 3.14 10^6/uL (4.20-5.40) L 05/12/19 05:17 Hgb 9.4 g/dL (12.0-16.0) L 05/12/19 05:17 Hct 30.3 % (37.0-47.0) L 05/12/19 05:17 MCV 96.5 fL (81.0-99.0) 05/12/19 05:17 MCH 29.9 pg (27.0-31.0) 05/12/19 05:17 MCHC 31.0 g/dL (32.0-36.0) L 05/12/19 05:17 RDW 12.7 % (12.0-15.0) 05/12/19 05:17 Plt Count 302 10^3/uL (130-450) 05/12/19 05:17 MPV 9.3 fL (7.9-10.8) 05/12/19 05:17 Neut # (Auto) 7.7 10^3/uL (1.5-6.6) H 05/12/19 05:17 Lymph # (Auto) 1.9 10^3/uL (1.5-3.5) 05/12/19 05:17 [place] # (Auto) 1.0 10^3/uL (0.0-1.0) 05/12/19 05:17 Eos # (Auto) 0.0 10^3/uL (0.0-0.7) 05/12/19 05:17 Baso # (Auto) 0.0 10^3/uL (0.0-0.1) 05/12/19 05:17 Absolute Nucleated RBC 0.00 x10^3/uL 05/12/19 05:17 Nucleated RBC % 0.0 /100WBC 05/12/19 05:17 PT 14.4 secs (9.9-12.6) H 05/11/19 21:20 INR 1.3 (0.8-1.2) H 05/11/19 21:20 APTT 31.2 secs (24.9-33.3) 05/11/19 21:20 Sodium 142 mmol/L (135-145) 05/12/19 05:17 Potassium 3.4 mmol/L (3.5-5.0) L 05/12/19 05:17 Chloride 103 mmol/L (101-111) 05/12/19 05:17 Carbon Dioxide 31 mmol/L (21-32) 05/12/19 05:17 Anion Gap 8.0 (6-13) 05/12/19 05:17 BUN 10 mg/dL (6-20) 05/12/19 05:17 Creatinine 1.1 mg/dL (0.4-1.0) H 05/12/19 05:17 Estimated GFR (MDRD) 50 (>89) L 05/12/19 05:17 Glucose 108 mg/dL (70-100) H 05/12/19 05:17 Lactic Acid 1.0 mmol/L (0.5-2.2) 05/11/19 21:20 Calcium 8.2 mg/dL (8.5-10.3) L 05/12/19 05:17 Magnesium 1.7 mg/dL (1.7-2.8) 05/11/19 21:20 Total Bilirubin 0.2 mg/dL (0.2-1.0) 05/11/19 21:20 AST 17 IU/L (10-42) 05/11/19 21:20 ALT 12 IU/L (10-60) 05/11/19 21:20 Alkaline Phosphatase 77 IU/L (42-121) 05/11/19 21:20 Total Protein 6.8 g/dL (6.7-8.2) 05/11/19 21:20 Albumin 2.7 g/dL (3.2-5.5) L 05/11/19 21:20 Globulin 4.1 g/dL (2.1-4.2) 05/11/19 21:20 Albumin/Globulin Ratio 0.7 (1.0-2.2) L 05/11/19 21:20 Lipase 41 U/L (22-51) 05/11/19 21:20 Urine Color YELLOW 05/11/19 21:55 Urine Clarity HAZY (CLEAR) 05/11/19 21:55 Urine pH >=9.0 PH (5.0-7.5) H 05/11/19 21:55 Ur Specific [place] 1.015 (1.002-1.030) 05/11/19 21:55 Urine Protein 100 mg/dL (NEGATIVE) H 05/11/19 21:55 Urine Glucose (UA) NEGATIVE mg/dL (NEGATIVE) 05/11/19 21:55 Urine Ketones TRACE mg/dL (NEGATIVE) 05/11/19 21:55 Urine Occult Blood LARGE (NEGATIVE) H 05/11/19 21:55 Urine Nitrite NEGATIVE (NEGATIVE) 05/11/19 21:55 Urine Bilirubin NEGATIVE (NEGATIVE) 05/11/19 21:55 Urine Urobilinogen 0.2 (NORMAL) E.U./dL (NORMAL) 05/11/19 21:55 Ur Leukocyte Esterase SMALL (NEGATIVE) H 05/11/19 21:55 Urine RBC 6-10 /HPF (0-5) H 05/11/19 21:55 Urine WBC 11-25 /HPF (0-5) H 05/11/19 21:55 Ur Squamous Epith Cells FEW Squamous (<= Few) 05/11/19 21:55 Urine Bacteria Few /HPF (None Seen) 05/11/19 21:55 Ur Microscopic Review INDICATED 05/11/19 21:55 Urine Culture Comments INDICATED 05/11/19 21:55 - Procedures Procedures: Procedures ANESTH INJEC PERIPH NERV (11/08/14) DRAINAGE OF RIGHT SHOULDER JOINT, OPEN APPROACH (08/31/15) EXCISION OF R UP ARM SUBCU/FASCIA, OPEN APPROACH (09/06/15) INSERTION OF INFUSION DEVICE INTO R ATRIUM, PERC APPROACH (08/31/15) REPAIR RIGHT UPPER ARM SKIN, EXTERNAL APPROACH (10/02/15) REPOSITION RIGHT SHOULDER TENDON, OPEN APPROACH (08/18/15) ROTATOR CUFF REPAIR (11/08/14)
[2019-05-12] MEDS: POLYETHYLENE GLYCOL 3350 17 GM PACKET PO SCH (09:14)
[2019-05-12] MEDS: CEFEPIME 2 GM in SODIUM CHLORIDE 0.9% MINIBAG 100 ML IV SCH (12:48)
[2019-05-12] MEDS ORDERED: ESTRADIOL 1 MG TABLET PO SCH (13:00)
[2019-05-12] MEDS: buPROPion XL 150 MG TABLET PO SCH (13:22)
[2019-05-12] MEDS: SACCHAROMYCES BOULARDII 250 MG CAPSULE PO SCH (16:51)
[2019-05-12] MEDS: CELECOXIB 100 MG CAPSULE PO SCH (20:23)
[2019-05-12] MEDS: DOCUSATE SODIUM 250 MG CAPSULE PO SCH (21:53)
[2019-05-13] MEDS: HYDROmorphone 0.5 MG/0.5 ML SYRINGE IVP PRN ×6 (00:12→16:12)
[2019-05-13] MEDS: CEFEPIME 2 GM in SODIUM CHLORIDE 0.9% MINIBAG 100 ML IV SCH ×2 (00:14→11:35)
[2019-05-13] MEDS: SODIUM CHLORIDE FLUSH 0.9% 10 ML SYRINGE IVP SCH ×3 (00:24→16:12)
[2019-05-13] MEDS: NS W/20 MEQ KCL 1,000 ML IV SCH ×3 (03:42→11:35)
[2019-05-13] MEDS: ONDANSETRON 4 MG/2 ML VIAL IVP PRN ×3 (03:47→18:11)
[2019-05-13] MEDS: PANTOPRAZOLE 40 MG VIAL IVP SCH (06:02)
[2019-05-13 06:09] LABS: BASOPHILS % (AUTO) 0.3 %; EOSINOPHILS # (AUTO) 0.1 10^3/uL (0.0-0.7); EOSINOPHILS % (AUTO) 1.8 %; HGB - HEMOGLOBIN 8.4 g/dL (12.0-16.0); LYMPHOCYTES # (AUTO) 1.7 10^3/uL (1.5-3.5); LYMPHOCYTES % (AUTO) 21.3 %; MEAN CORPUSCULAR HEMOGLOBIN 30.2 pg (27.0-31.0); MEAN CORPUSCULAR HGB CONC 30.7 g/dL (32.0-36.0); MEAN CORPUSCULAR VOLUME 98.6 fL (81.0-99.0); MEAN PLATELET VOLUME 9.5 fL (7.9-10.8); MONOCYTES # (AUTO) 0.8 10^3/uL (0.0-1.0); MONOCYTES % (AUTO) 10.1 %; NEUTROPHILS # (AUTO) 5.2 10^3/uL (1.5-6.6); NEUTROPHILS % (AUTO) 65.1 %; PLT - PLATELET COUNT 306 10^3/uL (130-450); RED BLOOD COUNT 2.78 10^6/uL (4.20-5.40); RED CELL DISTRIBUTION WIDTH 12.9 % (12.0-15.0)
[2019-05-13 06:16] LABS: CALCIUM 7.7 mg/dL (8.5-10.3); CREATININE 0.8 mg/dL (0.4-1.0)
--- NOTE | 2019-05-13 08:38 | PROVIDER PROGRESS NOTE ---
Assessment/Plan - Problem List (1) Pyelonephritis Assessment/Plan: The CT of abdomen conformed L sided pyelomephritis, making this a "complicated" UTI. Blood cultures are neg to date. She is responding to iv antibiotics and will therefore transition to po antibiotic after 48 hours of iv treatment, and plan a 7 day course. (2) UTI due to Klebsiella species Assessment/Plan: Urine cultures have grown Klebsiella. Will adjust po meds per sensitivities>> Cefepime iv to oral Cipro. (3) Abdominal pain Qualifiers: Abdominal location: generalized Qualified Code(s): R10.84 - Generalized abdominal pain Assessment/Plan: Resolved (4) History of alcohol abuse Assessment/Plan: Wants to stop (5) Cholelithiasis Qualifiers: Cholelithiasis location: gallbladder Cholecystitis acuity: chronic Biliary obstruction: without biliary obstruction Assessment/Plan: Needs elective (6) Depression Assessment/Plan: Her home dose of antidepressant was ordered here. (7) Hypertension Assessment/Plan: On meds (8) Hypokalemia Assessment/Plan: Caused by inadequate po intake and losses in vomiting. Resolved with replacement Monitor BMP daily. (9) Anemia Qualifiers: Anemia type: iron deficiency Assessment/Plan: Hemodilution from iv crystalloid volume replacement is adding to this. Will check Folate, B12 and Iron stores, guiac stool, replace if low. - Current Meds Current Meds: Current Medications Generic Name Dose Route Start Last Admin Trade Name Freq PRN Reason Stop Dose Admin Bupropion HCl 150 mg 05/12/19 13:00 05/12/19 13:22 Wellbutrin Xl PO 150 mg DAILY HANSEL Administration Celecoxib 100 mg 05/12/19 21:00 05/12/19 20:23 Celebrex PO 100 mg BID HANSEL Administration Docusate Sodium 250 - 500 mg 05/12/19 17:00 05/12/19 21:53 Colace 250mg Capsule PO 250 mg DAILY HANSEL Administration Estradiol 0.5 mg 05/12/19 13:00 05/12/19 14:36 Estrace PO 0.5 mg Q48H HANSEL Administration Hydromorphone HCl 0.5 mg 05/11/19 23:58 05/13/19 06:45 Dilaudid Inj Syringe IVP 0.5 mg Q3H PRN Administration Pain 8 to 10 Potassium Chloride/Sodium Chloride 1,000 mls @ 125 mls/hr 05/11/19 23:45 05/13/19 05:01 Normal Saline 0.9% W/20 Meq Kcl IV 125 mls/hr .Q8H HANSEL Infusion Cefepime HCl 2 gm/ Sodium 100 mls @ 200 mls/hr 05/12/19 12:00 05/13/19 00:44 Chloride IV Infused Q12H HANSEL Infusion Medroxyprogesterone Acetate 2.5 mg 05/12/19 13:30 05/12/19 14:37 Provera PO 2.5 mg Q48H HANSEL Administration Ondansetron HCl 4 mg 05/11/19 23:58 05/13/19 03:47 Zofran Inj IVP 4 mg Q6HR PRN Administration Nausea / Vomiting Pantoprazole Sodium 40 mg 05/12/19 07:00 05/13/19 06:02 Protonix IVP 40 mg QDAC HANSEL Administration Polyethylene Glycol 17 gm 05/12/19 09:00 05/12/19 09:14 Miralax PO Not Given DAILY HNASEL Saccharomyces Boulardii 250 mg 05/12/19 17:00 05/12/19 16:51 Florastor PO 250 mg BIDWM HANSEL Administration Sodium Chloride 10 ml 05/11/19 23:58 05/12/19 11:17 Normal Saline Flush 0.9% IVP 10 ml PRN PRN Administration NEEDED PER PROVIDER ORDERS Sodium Chloride 10 ml 05/12/19 01:00 05/13/19 00:24 Normal Saline Flush 0.9% IVP 10 ml 0100,0900,1700 HANSEL Administration Thiamine HCl 100 mg 05/12/19 01:42 05/12/19 09:14 Vitamin B-1 PO 100 mg DAILY HANSEL Administration - Lab Result Fish Bone Diagrams: 05/13/19 05:37 05/13/19 05:37 - Additional Planning My Orders: My Active Orders 05/12/19 13:00 Estradiol [Estrace] 0.5 mg PO Q48H buPROPion [Wellbutrin Xl] 150 mg PO DAILY 05/12/19 13:30 medroxyPROGESTERone [Provera] 2.5 mg PO Q48H 05/12/19 17:00 Docusate Sodium 250Mg Capsule [Colace 250Mg Capsule] 250 - 500 mg PO DAILY Saccharomyces Boulardii [Florastor] 250 mg PO BIDWM 05/12/19 21:00 Celecoxib [CeleBREX] 100 mg PO BID 05/12/19 Lunch Soft Mechanical Diet [DIET] 05/13/19 05:00 Guiaic [OCCULT BLOOD IN PAT. SINGLE] [RAPID] DAILYLAB 05/13/19 09:00 FOLATE [IAI] DAILY IRON TIBC PANEL [CHEM] DAILY VITAMIN B12 [IAI] DAILY Lisinopril [Zestril] 10 mg PO DAILY Patient Own Med [Patient Own Medication] 1 each PO DAILY amLODIPine [Norvasc] 10 mg PO DAILY Objective Vital Signs: Vital Signs - 24 hr 05/12/19 05/12/19 05/12/19 11:31 13:00 16:34 Temperature 36.6 C 37.4 C 37.5 C Heart Rate [ 75 78 Brachial] Respiratory 18 18 Rate Blood Pressure 111/64 140/72 H [Right Brachial artery] O2 Saturation 94 97 05/12/19 05/13/19 05/13/19 20:17 00:15 03:35 Temperature 37.3 C 37.0 C 36.8 C Heart Rate [ 84 73 72 Brachial] Respiratory 18 16 16 Rate Blood Pressure 118/71 125/71 120/73 [Right Brachial artery] O2 Saturation 96 95 94 05/13/19 08:03 Temperature 36.6 C Heart Rate [ 85 Brachial] Respiratory 16 Rate Blood Pressure 131/71 H [Right Brachial artery] O2 Saturation 92 Oxygen O2 Source Room air Oxygen Flow Rate 3 I&O (Last 24 Hrs): Intake and Output Totals x24h 05/11/19 05/12/19 05/13/19 23:59 23:59 23:59 Intake Total 1300 4230.000 1264.583 Output Total 1999 1275 Balance 1300 2230.000 -10.417 - Results Results: Laboratory Results WBC 8.0 x10^3/uL (4.8-10.8) 05/13/19 05:37 RBC 2.78 10^6/uL (4.20-5.40) L 05/13/19 05:37 Hgb 8.4 g/dL (12.0-16.0) L 05/13/19 05:37 Hct 27.4 % (37.0-47.0) L 05/13/19 05:37 MCV 98.6 fL (81.0-99.0) 05/13/19 05:37 MCH 30.2 pg (27.0-31.0) 05/13/19 05:37 MCHC 30.7 g/dL (32.0-36.0) L 05/13/19 05:37 RDW 12.9 % (12.0-15.0) 05/13/19 05:37 Plt Count 306 10^3/uL (130-450) 05/13/19 05:37 MPV 9.5 fL (7.9-10.8) 05/13/19 05:37 Neut # (Auto) 5.2 10^3/uL (1.5-6.6) 05/13/19 05:37 Lymph # (Auto) 1.7 10^3/uL (1.5-3.5) 05/13/19 05:37 [place] # (Auto) 0.8 10^3/uL (0.0-1.0) 05/13/19 05:37 Eos # (Auto) 0.1 10^3/uL (0.0-0.7) 05/13/19 05:37 Baso # (Auto) 0.0 10^3/uL (0.0-0.1) 05/13/19 05:37 Absolute Nucleated RBC 0.00 x10^3/uL 05/13/19 05:37 Nucleated RBC % 0.0 /100WBC 05/13/19 05:37 PT 14.4 secs (9.9-12.6) H 05/11/19 21:20 INR 1.3 (0.8-1.2) H 05/11/19 21:20 APTT 31.2 secs (24.9-33.3) 05/11/19 21:20 Sodium 138 mmol/L (135-145) 05/13/19 05:37 Potassium 4.0 mmol/L (3.5-5.0) 05/13/19 05:37 Chloride 107 mmol/L (101-111) 05/13/19 05:37 Carbon Dioxide 25 mmol/L (21-32) 05/13/19 05:37 Anion Gap 6.0 (6-13) 05/13/19 05:37 BUN 9 mg/dL (6-20) 05/13/19 05:37 Creatinine 0.8 mg/dL (0.4-1.0) 05/13/19 05:37 Estimated GFR (MDRD) 73 (>89) L 05/13/19 05:37 Glucose 96 mg/dL (70-100) 05/13/19 05:37 Lactic Acid 1.0 mmol/L (0.5-2.2) 05/11/19 21:20 Calcium 7.7 mg/dL (8.5-10.3) L 05/13/19 05:37 Phosphorus 3.9 mg/dL (2.5-4.6) 05/12/19 05:17 Magnesium 1.7 mg/dL (1.7-2.8) 05/11/19 21:20 Total Bilirubin 0.2 mg/dL (0.2-1.0) 05/11/19 21:20 AST 17 IU/L (10-42) 05/11/19 21:20 ALT 12 IU/L (10-60) 05/11/19 21:20 Alkaline Phosphatase 77 IU/L (42-121) 05/11/19 21:20 Total Protein 6.8 g/dL (6.7-8.2) 05/11/19 21:20 Albumin 2.7 g/dL (3.2-5.5) L 05/11/19 21:20 Globulin 4.1 g/dL (2.1-4.2) 05/11/19 21:20 Albumin/Globulin Ratio 0.7 (1.0-2.2) L 05/11/19 21:20 Lipase 41 U/L (22-51) 05/11/19 21:20 Urine Color YELLOW 05/11/19 21:55 Urine Clarity HAZY (CLEAR) 05/11/19 21:55 Urine pH >=9.0 PH (5.0-7.5) H 05/11/19 21:55 Ur Specific [place] 1.015 (1.002-1.030) 05/11/19 21:55 Urine Protein 100 mg/dL (NEGATIVE) H 05/11/19 21:55 Urine Glucose (UA) NEGATIVE mg/dL (NEGATIVE) 05/11/19 21:55 Urine Ketones TRACE mg/dL (NEGATIVE) 05/11/19 21:55 Urine Occult Blood LARGE (NEGATIVE) H 05/11/19 21:55 Urine Nitrite NEGATIVE (NEGATIVE) 05/11/19 21:55 Urine Bilirubin NEGATIVE (NEGATIVE) 05/11/19 21:55 Urine Urobilinogen 0.2 (NORMAL) E.U./dL (NORMAL) 05/11/19 21:55 Ur Leukocyte Esterase SMALL (NEGATIVE) H 05/11/19 21:55 Urine RBC 6-10 /HPF (0-5) H 05/11/19 21:55 Urine WBC 11-25 /HPF (0-5) H 05/11/19 21:55 Ur Squamous Epith Cells FEW Squamous (<= Few) 05/11/19 21:55 Urine Bacteria Few /HPF (None Seen) 05/11/19 21:55 Ur Microscopic Review INDICATED 05/11/19 21:55 Urine Culture Comments INDICATED 05/11/19 21:55 - Procedures Procedures: Procedures ANESTH INJEC PERIPH NERV (11/08/14) DRAINAGE OF RIGHT SHOULDER JOINT, OPEN APPROACH (08/31/15) EXCISION OF R UP ARM SUBCU/FASCIA, OPEN APPROACH (09/06/15) INSERTION OF INFUSION DEVICE INTO R ATRIUM, PERC APPROACH (08/31/15) REPAIR RIGHT UPPER ARM SKIN, EXTERNAL APPROACH (10/02/15) REPOSITION RIGHT SHOULDER TENDON, OPEN APPROACH (08/18/15) ROTATOR CUFF REPAIR (11/08/14) ABX Reporting Has patient been on IV antibiotics over the past 48 hours?: Yes
[2019-05-13] MEDS: POLYETHYLENE GLYCOL 3350 17 GM PACKET PO SCH (08:59)
[2019-05-13] MEDS: buPROPion XL 150 MG TABLET PO SCH (09:00)
[2019-05-13] MEDS: SACCHAROMYCES BOULARDII 250 MG CAPSULE PO SCH ×2 (09:00→16:11)
[2019-05-13] MEDS ORDERED: amLODIPine 5 MG TABLET PO SCH (09:00)
[2019-05-13] MEDS ORDERED: LISINOPRIL 5 MG TABLET PO SCH (09:00)
[2019-05-13] MEDS ORDERED: ATENOLOL 25 MG TABLET PO SCH ×2 (09:00)
[2019-05-13] MEDS: THIAMINE 100 MG TABLET PO SCH (09:00)
[2019-05-13] MEDS ORDERED: DISULFIRAM 250 MG PO SCH (09:00)
[2019-05-13] MEDS: CELECOXIB 100 MG CAPSULE PO SCH (09:01)
[2019-05-13] MEDS: DOCUSATE SODIUM 250 MG CAPSULE PO SCH (09:02)
[2019-05-13 09:49] LABS: % IRON SATURATION 9 % (20-50); IRON 16 ug/dL (28-170); TOTAL IRON BINDING CAPACITY 175 ug/dL (250-450); TRANSFERRIN 125 mg/dL (192-382)
[2019-05-13 10:11] LABS: FOLATE 13.91 ng/mL (5.90 - >24.8)
[2019-05-13] MEDS ORDERED: ACETAMINOPHEN/CODEINE 300 MG/30 MG TABLET PO PRN (16:13)
[2019-05-13] MEDS ORDERED: MULTIVITAMIN W/MINERALS TABLET PO SCH (16:30)
[2019-05-13] MEDS ORDERED: CIPROFLOXACIN 250 MG TABLET PO SCH ×2 (18:00→21:00)
--- NOTE | 2019-05-13 18:41 | Discharge Plan ---
Discharge Plan Problem Reviewed?: Yes Disposition: Home, Self Care Condition: Stable Prescriptions: Ciprofloxacin/Ciprofloxa HCl [Ciprofloxacin ER 500 mg Tablet] 500 mg PO BID #14 tbmp.24hr Oxycodone HCl/Acetaminophen [Percocet 5-325 mg Tablet] 1 each PO Q8H PRN #6 ta blet PRN Reason: Severe Pain Thiamine [Vitamin B-1] 100 mg PO DAILY #30 tablet Diet: Regular Activity Restrictions: Activity as Tolerated Shower Restrictions: No Instruction Topics: Pyelonephritis [facility] Health Concerns: Admitted with urinary tract and kidney infection, nausea, vomiting and dehydration. Plan of Treatment: Finish a course of antibiotics (this prescription was sent to [facility]). Use Percocet pain medication only if severe pain; a paper copy is required, it cannot be sent electronically. Start daily Thiamine tablets (this prescription was sent to [facility]). The [employer] provided you resources for outpatient mental health. Care Goals: Return to independant function. Outpatient Physical Therapy rehab may be needed, which your PCP would order. Assessment: The patient is agreeable with the plan. Additional Instructions or Follow Up instructions: See your PCP in 5-10 days for follow-up of the infection and any other concerns. Follow-Up Care: Outpatient Rehab - PT No Smoking: If you smoke, Please STOP! Call for help. Follow-up with: Danita Espitia MD [Primary Care Provider] -
[2019-05-13 18:52] VITALS: BP 131/71
--- NOTE | 2019-05-13 19:13 | DISCHARGE SUMMARY ---
Discharge Summary Admit Date: 05/11/19 Discharge Date: 05/13/19 Discharging Provider: Dr Candace Strickland Primary Care Provider: Dr Yan Wyatt Code Status: Attempt Resuscitation Condition at Discharge: Stable Discharge Disposition: 01 Home, Self Care - DIAGNOSES Admission Diagnoses: 1) Pyelonephritis 2) N/V 3) Dehydration 4) Recent ex-alcohol abuse 5) Hypokalemia Discharge Diagnoses with Status of Each Condition: See below - HPI History of Present Illness: From the admission H&P of Dr Randolph Lyon: Patient is a 63 y/o female who presented to the ED with complain of fever and chills. She was initially feeling well earlier in the day and was able to run errands. However when she arrived home she started shaking. She took her temperature and realized it was 104F. As a result her brought her to the ED. Upon presentation to the ED she appeared flushed and was tachycardic. She also complained of lower back pain, suprapubic pain and right flank pain. She denied burning on urination, hematuria, change in color or odor of her urine. She has been experiencing nausea, vomiting and diarrhea over the past 1 week. She decided to quit drinking 2 weeks ago. She used to drink 2 bottles of wine daily. She denies withdrawal seizures but is not certain if she has had any other withdrawal symptoms. She denies chest pain or dyspnea. She reports episodes of anxiety during which it "becomes hard to breath". She was found to have a WBC of 12.[address] scan of the abd/pelvis showed some perinephric stranding suggestive of pyelonephritis. She also had a potassium of 2.8. As a result she was admitted for further management. - HOSPITAL COURSE Hospital Course: (1) Pyelonephritis The CT of abdomen conformed a left sided pyelomephritis (making this a "complicated" UTI). Blood cultures were neg but her urine culture grew a Gram neg baccilus. She was put on iv antibiotics using Cefepime and was transitioned to po Cipro antibiotic with a planned 7 day course (10 days total). (2) UTI due to Klebsiella species The urine cultures grew Klebsiella and Cefepime iv to oral Cipro erre appropriate management choices per MICCs. (3) Abdominal pain The nausea, vomiting and generalized abdominal pain resolved, but she had mild right lateral and flank pain, which may be her gallstone symptoms (see below). She was prescribed 6 tablets of Percocet at discharge. (4) History of alcohol abuse She had no signs of withdrawal while here, and had reprted stopping alcohol intake 2 weeks previously. She stated to the Hospitalist and the Upsetter Helper, that she had a plan to cease alcohol abuse. Resources were provided. She was on multivitamins and Thiamine orally while here, and discharged with new prescriptions for these. (5) Cholelithiasis The admission abd/pelvis CT in the ER showed gallstones but no inflammation or obstruction. She was advised that this needs elective management as an outpatient, with a PCP referral to a specialist. (6) Depression Her home dose of antidepressant was ordered here. SW also provided her some information on resources. (7) Hypertension BP was controlled on her home meds. (8) Hypokalemia Her serum Potassium of 2.8 was replaced and corrected. It was felt to be caused by inadequate po intake and also from losses in vomiting for 1 week before hospitalization. (9) Anemia, iron deficiency Her admission Hgb of 10.4 dropped to 8.4. Hemodilution from iv saline replacement added to this, but she was found to have low Iron stores and was discharged on oral Ferrous Gluconate replacement. Her Folate and B12 serum levels were adequate - ALLERGIES Allergies/Adverse Reactions: Allergies Allergy/AdvReac Type Severity Reaction Status Date / Time No Known Drug Allergies Allergy Verified 05/15/19 15:58 - MEDICATIONS Home Medications: Ambulatory Orders Medication Instructions Recorded Confirmed Estradiol [Estrace] 0.5 mg PO Q48H 02/11/13 05/12/19 Medroxyprogesterone Acetate 2.5 mg PO Q48H 02/11/13 05/12/19 Pantoprazole Sodium [Protonix] 40 mg PO DAILY 02/11/13 05/12/19 Atenolol 50 mg PO DAILY 11/05/14 05/12/19 Amlodipine Besylate 10 mg PO DAILY 05/12/19 05/12/19 Bupropion HCl [Bupropion Xl] 150 mg PO DAILY 05/12/19 05/12/19 Celecoxib 100 mg PO BID 05/12/19 05/12/19 Disulfiram [Antabuse] 250 mg PO DAILY 08/27/19 08/27/19 Lisinopril 10 mg PO DAILY 05/12/19 05/12/19 Ciprofloxacin/Ciprofloxa HCl 500 mg PO BID #14 tbmp.24hr 05/13/19 [Ciprofloxacin ER 500 mg Tablet] Ferrous Gluconate [Iron] 240 mg PO DAILY #30 tablet 05/13/19 Oxycodone HCl/Acetaminophen 1 each PO Q8H PRN #6 tablet 05/13/19 [Percocet 5-325 mg Tablet] Thiamine [Vitamin B-1] 100 mg PO DAILY #30 tablet 05/13/19 Zolpidem [Ambien] 5 mg PO HS #6 tablet 05/13/19 Ondansetron Odt [Zofran] 4 mg TL Q6H PRN #20 tablet 05/15/19 Oxycodone HCl/Acetaminophen 1 - 2 each PO Q6H PRN #20 tablet 05/15/19 [Percocet 5-325 mg Tablet] - PHYSICAL EXAM AT DISCHARGE General Appearance: positive: No acute distress, Alert Eyes Bilateral: positive: Normal inspection ENT: positive: ENT inspection nml, Other (Moist oral mucosa) Neck: positive: Nml inspection, No JVD Respiratory: positive: No respiratory distress, Breath sounds nml Cardiovascular: positive: Regular rate & rhythm, No murmur Abdomen: positive: Nml bowel sounds, No distention Skin: positive: Other (Very tanned and leathery) Extremities: positive: No pedal edema Neurologic/Psychiatric: positive: Oriented x3, Other (Grossly intact) - LABS Result Diagrams: 05/13/19 05:37 05/13/19 05:37 - DIAGNOSTIC IMAGING Diagnostic Imaging Results: Final report reviewed - FOLLOW UP Follow Up: She was advised to see her PCP within the next week for hospital follow-up of the infection, for further management of any pain, and referral for evaluation and management of gallstones. - TIME SPENT Time Spent in Discharge (Minutes): 60
[2019-05-14] MEDS ORDERED: PANTOPRAZOLE 40 MG TABLET PO SCH (07:00)
== END 2019-05-13 19:05 | disposition home or self-care (01) | DRG 690 ==
LOC: ED 20:45 → MS2 23:58 → EEVIPCON 23:58
PROVIDERS: ADMIT Internal Medicine; ATTEND Internal Medicine
DX: N10 Acute pyelonephritis (principal); K80.10 Calculus of gallbladder with chronic cholecystitis without obstruction; B96.1 Klebsiella pneumoniae [K. pneumoniae] as the cause of diseases classified elsewhere; E86.0 Dehydration; E87.6 Hypokalemia; F10.10 Alcohol abuse, uncomplicated; R11.2 Nausea with vomiting, unspecified; R19.7 Diarrhea, unspecified; F32.9 Major depressive disorder, single episode, unspecified; F41.9 Anxiety disorder, unspecified; I10 Essential (primary) hypertension; D50.9 Iron deficiency anemia, unspecified; K21.9 Gastro-esophageal reflux disease without esophagitis
CPT/HCPCS: 36415; 51701; 71045; 74177; 80048; 80053; 81001; 82607; 82746; 83540; 83605; 83690; 83735; 84100; 84466; 85025; 85610; 85730; 87040; 87077; 87086; 87181; 96365; 96368; 96375; 96376; 97161; 99285; A9270; J0131; J1170; Q9967; 81003; 82272

== ENCOUNTER 2019-05-15 15:49 | Emergency (ER) | payer OTHER, MEDICARE ==
[2019-05-15] MEDS ORDERED: ONDANSETRON 4 MG/2 ML VIAL IVP STA (16:08)
[2019-05-15] MEDS ORDERED: SODIUM CHLORIDE 0.9% 1,000 ML IV ONE (16:08)
[2019-05-15] MEDS ORDERED: HYDROmorphone 1 MG/ML CARPUJECT IVP STA ×2 (16:08→18:56)
[2019-05-15] MEDS ORDERED: KETOROLAC 15 MG/ML VIAL IVP STA (16:10)
[2019-05-15] MEDS ORDERED: cefTRIAXone 1 GM VIAL IVP STA (16:10)
--- NOTE | 2019-05-15 16:11 | ED Physician Documentation ---
PD HPI ABD PAIN - Stated complaint Stated Complaint: ABD PAIN - Chief complaint Chief Complaint: Abd Pain - History obtained from History obtained from: Patient, EMS - History of Present Illness Timing - onset: Today, How many weeks ago (Initial onset of fever belly pain back pain nausea and weakness about a week ago and was seen in the ER and diagnosed with kidney infection and was in the hospital for couple of days. She was discharged 2 days ago and states the pharmacy was closed that night so she did not get her prescription to the following day. She has had her Cipro prescription medicine last evening and once again today. She had a recurrence of abdominal and flank pain on both sides through the day today. She had not been prescribed any nausea or pain medicines.) Timing - duration: Hours (recurrent flank and lower abd pain today, similar to what she had prior to hospitalization for kidney infection.) Timing - details: Gradual onset, Still present, Waxing and waning Quality: Cramping, Aching, Pain Location: Periumbilical, LLQ Radiation: Left flank, Right flank Improved by: No: Eating, Laying still Worsened by: No: Eating, Moving Associated symptoms: Nausea, Loss of appetite. No: Fever, Vomiting, Diarrhea, Constipation, Dysuria Recently seen: Emergency Dept, Admitted (4 days ago, for 2 days, discharged 2 days ago improved at the time, though some nausea and cramping pains at the time. Rx Cipro, Percocet and Zofran.) Review of Systems Constitutional: reports: Myalgias, Fatigue. denies: Fever Nose: denies: Rhinorrhea / runny nose, Congestion Throat: denies: Sore throat Cardiac: denies: Chest pain / pressure, Palpitations Respiratory: denies: Dyspnea, Cough GI: reports: Abdominal Pain, Nausea. denies: Vomiting, Diarrhea : denies: Dysuria, Frequency Skin: denies: Rash, Lesions Musculoskeletal: reports: Back pain. denies: Neck pain Neurologic: reports: Generalized weakness. denies: Focal weakness, Numbness, Altered mental status, Headache PD PAST MEDICAL HISTORY - Past Medical History Cardiovascular: Hypertension Respiratory: None Endocrine/Autoimmune: None GI: None CARDIOLOGY TECH: None : None HEENT: None Psych: None Musculoskeletal: None Derm: None - Past Surgical History Past Surgical History: Yes General: Hiatal hernia repair Ortho: Rotator cuff repair, Arthroscopic surgery /CARDIOLOGY TECH: section - Present Medications Home Medications: Ambulatory Orders Medication Instructions Recorded Confirmed Estradiol [Estrace] 0.5 mg PO Q48H 02/11/13 05/12/19 Medroxyprogesterone Acetate 2.5 mg PO Q48H 02/11/13 05/12/19 Pantoprazole Sodium [Protonix] 40 mg PO DAILY 02/11/13 05/12/19 Atenolol 50 mg PO DAILY 11/05/14 05/12/19 Amlodipine Besylate 10 mg PO DAILY 05/12/19 05/12/19 Bupropion HCl [Bupropion Xl] 150 mg PO DAILY 05/12/19 05/12/19 Celecoxib 100 mg PO BID 05/12/19 05/12/19 Disulfiram [Antabuse] 250 mg PO DAILY 05/12/19 05/12/19 Lisinopril 10 mg PO DAILY 05/12/19 05/12/19 Ciprofloxacin/Ciprofloxa HCl 500 mg PO BID #14 tbmp.24hr 05/13/19 [Ciprofloxacin ER 500 mg Tablet] Ferrous Gluconate [Iron] 240 mg PO DAILY #30 tablet 05/13/19 Oxycodone HCl/Acetaminophen 1 each PO Q8H PRN #6 tablet 05/13/19 [Percocet 5-325 mg Tablet] Thiamine [Vitamin B-1] 100 mg PO DAILY #30 tablet 05/13/19 Zolpidem [Ambien] 5 mg PO HS #6 tablet 05/13/19 Ondansetron Odt [Zofran] 4 mg TL Q6H PRN #20 tablet 05/15/19 Oxycodone HCl/Acetaminophen 1 - 2 each PO Q6H PRN #20 tablet 05/15/19 [Percocet 5-325 mg Tablet] - Allergies Allergies/Adverse Reactions: Allergies Allergy/AdvReac Type Severity Reaction Status Date / Time No Known Drug Allergies Allergy Verified 05/15/19 15:58 - Social History Does the pt smoke?: No Smoking Status: Never smoker Does the pt drink ETOH?: No Does the pt have substance abuse?: No - Immunizations Immunizations are current?: Yes - POLST Patient has POLST: No POLST Status: Full Code PD ED PE NORMAL - Vitals Vital signs reviewed: Yes - General General: Alert and oriented X 3, Well developed/nourished, Other (Anxious and seems uncomfortable related to lower abdomen and flank pain for timely on the left.) - HEENT HEENT: Pharynx benign - Neck Neck: Supple, no meningeal sign, No adenopathy - Cardiac Cardiac: RRR, No murmur - Respiratory Respiratory: Clear bilaterally - Abdomen Abdomen: Normal bowel sounds, Soft, Non distended, No organomegaly, Other (Tender in the suprapubic and left lower abdomen without any masses nor distention. There is no percussion or rebound tenderness.) - Female Female : Deferred - Rectal Rectal: Deferred - Back Back: Other (Some left flank tenderness to percussion.) - Derm Derm: Normal color, Warm and dry - Extremities Extremities: No tenderness to palpate, Normal ROM s pain, No edema, No calf tenderness / cord - Neuro Neuro: Alert and oriented X 3, No motor deficit, Normal speech - Psych Psych: No: Normal affect (anxious) Results - Vitals Vitals: Vital Signs - 24 hr 05/15/19 05/15/19 05/15/19 15:53 17:30 18:30 Temperature 36.9 C Heart Rate 65 64 53 L Respiratory 18 12 10 L Rate Blood Pressure 167/99 H 166/91 H 167/83 H O2 Saturation 99 99 96 Oxygen O2 Source Nasal cannula - Labs Labs: Laboratory Tests 05/15/19 05/15/19 05/15/19 16:30 16:30 16:30 WBC 9.0 RBC 3.37 L Hgb 10.4 L Hct 31.4 L MCV 93.2 MCH 30.9 MCHC 33.1 RDW 12.2 Plt Count 448 MPV 9.7 Neut # (Auto) 6.7 H Lymph # (Auto) 1.5 [place] # (Auto) 0.7 Eos # (Auto) 0.1 Baso # (Auto) 0.0 Absolute Nucleated RBC 0.00 Nucleated RBC % 0.0 Sodium 140 Potassium 3.7 Chloride 102 Carbon Dioxide 25 Anion Gap 13.0 BUN 9 Creatinine 0.8 Estimated GFR (MDRD) 73 L Glucose 105 H Lactic Acid 1.1 Calcium 10.0 Magnesium 1.5 L Total Bilirubin < 0.2 L AST 22 ALT 23 Alkaline Phosphatase 90 Total Protein 7.5 Albumin 3.1 L Globulin 4.4 H Albumin/Globulin Ratio 0.7 L Lipase 27 Urine Color Urine Clarity Urine pH Ur Specific [place] Urine Protein Urine Glucose (UA) Urine Ketones Urine Occult Blood Urine Nitrite Urine Bilirubin Urine Urobilinogen Ur Leukocyte Esterase Urine RBC Urine WBC Ur Squamous Epith Cells Urine Bacteria Ur Microscopic Review Urine Culture Comments Ethyl Alcohol < 5.0 05/15/19 16:50 WBC RBC Hgb Hct MCV MCH MCHC RDW Plt Count MPV Neut # (Auto) Lymph # (Auto) [place] # (Auto) Eos # (Auto) Baso # (Auto) Absolute Nucleated RBC Nucleated RBC % Sodium Potassium Chloride Carbon Dioxide Anion Gap BUN Creatinine Estimated GFR (MDRD) Glucose Lactic Acid Calcium Magnesium Total Bilirubin AST ALT Alkaline Phosphatase Total Protein Albumin Globulin Albumin/Globulin Ratio Lipase Urine Color YELLOW Urine Clarity HAZY Urine pH 8.0 H Ur Specific [place] 1.010 Urine Protein NEGATIVE Urine Glucose (UA) NEGATIVE Urine Ketones NEGATIVE Urine Occult Blood SMALL H Urine Nitrite NEGATIVE Urine Bilirubin NEGATIVE Urine Urobilinogen 0.2 (NORMAL) Ur Leukocyte Esterase NEGATIVE Urine RBC 0-5 Urine WBC 0-3 Ur Squamous Epith Cells MOD Squamous H Urine Bacteria Rare Ur Microscopic Review INDICATED Urine Culture Comments NOT INDICATED Ethyl Alcohol - Rads (name of study) abd/pelvic CT Radiology: Prelim report reviewed, See rad report PD MEDICAL DECISION MAKING - ED course Complexity details: reviewed old records, reviewed results (Her infection markers are normal with no fever, normal white count and negative lactate. Her urine appears clear without any current signs of infection denoting initial effectiveness of her antibiotics. Kidney function is adequate. She still has some tenderness to the left side and left flank so can repeat a CT scan to ensure no other process. The prior scan a few days ago did not show any kidney stones. She had a small fat filled hernia without obstruction and that could potentially be causing problems. Other considerations would be intestinal process. We will get a repeat CT scan.), re-evaluated patient (Doing better pain hernandez with medicines here. Still a bit anxious. No nausea. Her markers of urine blood counts temperature lactate and the CT scan also improving infection and I would not predict significant worsening. I do not see reasons for rehospitalization. The patient is stable for discharge. She does not have many pain pills at home so we will write a prescription for more as well as some nausea medicine. She should continue her usual medicines as well as the Cipro antibiotic. Return as needed. Follow-up with your primary care early next week as planned. She states she has an appointment on the third.), considered differential (She is having some abdominal and flank pain similar to symptoms with her kidney infection several days ago. It had improved while hospitalized with some pain meds and antibiotics. She was discharged in improved but has had increased belly and flank pain today. She denies any fevers or vomiting. Consider persistent pyelo-versus medication side effect versus other causes.), d/w patient Departure - Departure Disposition: 01 Home, Self Care Clinical Impression: Flank pain, UTI due to Klebsiella species Abdominal pain Qualifiers: Abdominal location: lower abdomen, unspecified Qualified Code(s): R10.30 - Lower abdominal pain, unspecified Condition: Stable Record reviewed to determine appropriate education?: Yes Instructions: ED Kidney Infec Female Prescriptions: Ondansetron Odt [Zofran] 4 mg TL Q6H PRN #20 tablet PRN Reason: Nausea / Vomiting Oxycodone HCl/Acetaminophen [Percocet 5-325 mg Tablet] 1 - 2 each PO Q6H PRN #20 tablet PRN Reason: pain Comments: Frequent fluids. Continue the Cipro antibiotic. Ondansetron if needed for nausea. Percocet 1-2 every 6 hours as needed for pains. Use a stool softener daily as well. Follow-up with your primary care early next week. Return to the ER as needed.
[2019-05-15 16:44] LABS: BASOPHILS % (AUTO) 0.3 %; EOSINOPHILS # (AUTO) 0.1 10^3/uL (0.0-0.7); EOSINOPHILS % (AUTO) 0.7 %; HGB - HEMOGLOBIN 10.4 g/dL (12.0-16.0); LYMPHOCYTES # (AUTO) 1.5 10^3/uL (1.5-3.5); LYMPHOCYTES % (AUTO) 16.5 %; MEAN CORPUSCULAR HEMOGLOBIN 30.9 pg (27.0-31.0); MEAN CORPUSCULAR HGB CONC 33.1 g/dL (32.0-36.0); MEAN CORPUSCULAR VOLUME 93.2 fL (81.0-99.0); MEAN PLATELET VOLUME 9.7 fL (7.9-10.8); MONOCYTES # (AUTO) 0.7 10^3/uL (0.0-1.0); MONOCYTES % (AUTO) 7.2 %; NEUTROPHILS # (AUTO) 6.7 10^3/uL (1.5-6.6); NEUTROPHILS % (AUTO) 74.5 %; PLT - PLATELET COUNT 448 10^3/uL (130-450); RED BLOOD COUNT 3.37 10^6/uL (4.20-5.40); RED CELL DISTRIBUTION WIDTH 12.2 % (12.0-15.0)
[2019-05-15 16:49] LABS: ALBUMIN 3.1 g/dL (3.2-5.5); ALBUMIN/GLOBULIN RATIO 0.7 (1.0-2.2); ALKALINE PHOSPHATASE 90 IU/L (42-121); ALT ALANINE AMINOTRANSFERASE 23 IU/L (10-60); AST ASPARTATE AMINOTRANSFERASE 22 IU/L (10-42); BILIRUBIN,TOTAL < 0.2 mg/dL (0.2-1.0); BUN - BLOOD UREA NITROGEN 9 mg/dL (6-20); CARBON DIOXIDE - CO2 25 mmol/L (21-32); CHLORIDE 102 mmol/L (101-111); CREATININE 0.8 mg/dL (0.4-1.0); GFR - MDRD 73 (>89); GLUCOSE 105 mg/dL (70-100); LIPASE 27 U/L (22-51); MAGNESIUM 1.5 mg/dL (1.7-2.8); SODIUM 140 mmol/L (135-145); TOTAL PROTEIN 7.5 g/dL (6.7-8.2)
[2019-05-15] MEDS ORDERED: MAGNESIUM SULFATE 2 GRAM 2 GM/50 ML BAG IV ONE (16:56)
[2019-05-15 16:57] LABS: BILIRUBIN,URINE NEGATIVE (NEGATIVE); GLUCOSE, URINE (UA) NEGATIVE (NEGATIVE); KETONES,URINE (UA) NEGATIVE (NEGATIVE); LEUKOCYTE ESTERASE, URINE NEGATIVE (NEGATIVE); NITRITE,URINE NEGATIVE (NEGATIVE); OCCULT BLOOD,URINE SMALL (NEGATIVE); PROTEIN,URINE NEGATIVE (NEGATIVE); UROBILINOGEN,URINE 0.2 (NORMAL) E.U./dL (NORMAL)
[2019-05-15 17:05] LABS: CLARITY,URINE HAZY (CLEAR)
[2019-05-15 17:11] LABS: BACTERIA,URINE Rare /HPF (None Seen); RBC,URINE 0-5 /HPF (0-5); SQUAMOUS EPITHELIAL CELL,UR MOD Squamous (<= Few)
[2019-05-15] MEDS ORDERED: IOVERSOL 320 100 ML VIAL IVP ONE ×2 (17:37→18:08)
--- NOTE | 2019-05-15 18:44 | CT Report ---
Reason: increased left abd pain today; d/c 2 days ago Procedure Date: 05/15/2019 Accession Number: [id number] / [id number] Procedure: CT - Abdomen/Pelvis W CPT Code: FULL RESULT: EXAM: CT ABDOMEN AND PELVIS EXAM DATE: 05/15/2019 06:06 PM. CLINICAL HISTORY: Left-sided abdominal pain. COMPARISONS: ABDOMEN/PELVIS W/ 05/11/2019 10:15 PM. TECHNIQUE: Routine helical CT imaging was performed through the abdomen and pelvis. IV contrast: 90 mL Optiray 320. Enteric contrast: No. Reconstructions: Coronal and sagittal. In accordance with CT protocol optimization, one or more of the following dose reduction techniques were utilized for this exam: automated exposure control, adjustment of mA and/or KV based on patient size, or use of iterative reconstructive technique. FINDINGS: Lung Bases: Small effusions and atelectasis is seen. Postoperative changes at the gastroesophageal junction is again present. Liver: Normal. No masses. Gallbladder/Bile Ducts: Gallstone in the gallbladder is seen. No biliary dilation. Spleen: Normal. Pancreas: Normal. Adrenal Glands: Normal. Kidneys: Striated nephrographic changes again seen in the mid to lower left kidney (image 37/9) along with some minor perinephric fat stranding consistent with pyelonephritis, minimally improved. No abscess. No hydronephrosis. Mild cortical scarring in the upper pole left kidney is seen. Peritoneal Cavity/Bowel: There is mild predominantly sigmoid diverticulosis without evidence of diverticulitis. There is no obstruction or ileus. No free fluid or free air. The appendix is not visualized, however, no inflammatory changes are seen in the right lower quadrant region. Pelvic Organs: Uterine calcification related to a small old degenerated fibroid is seen. Trace free fluid is seen in the pelvis. Otherwise, the bladder and visualized pelvic organs are within normal limits. Vasculature: No aneurysms or other significant abnormality. Bones: Degenerative changes and grade 1 anterolisthesis is seen at L4-L5 without associated pars defects. No acute osseous abnormality demonstrated. Other: None. IMPRESSION: 1. Slightly improved left-sided pyelonephritis. No abscess or hydronephrosis. 2. New small bilateral pleural effusions and atelectasis. 3. Mild colonic diverticulosis without diverticulitis. 4. Cholelithiasis. No biliary dilation. RADIA
[2019-05-15 19:43] VITALS: BP 135/87
== END 2019-05-15 19:42 | disposition home or self-care (01) ==
LOC: EDUNIT# → ED 15:49
DX: N39.0 Urinary tract infection, site not specified (principal); B96.1 Klebsiella pneumoniae [K. pneumoniae] as the cause of diseases classified elsewhere; R10.30 Lower abdominal pain, unspecified; I10 Essential (primary) hypertension
CPT/HCPCS: 36415; 74177; 80053; 80320; 81001; 83605; 83690; 83735; 85025; 93005; 96361; 96365; 96375; 96376; 99284; 99285; J1170; Q9967; 81003; 87086

== ENCOUNTER 2019-05-15 15:50 | Outpatient (CLI) | payer OTHER | END 2019-05-15 15:51 | disposition critical access hospital (66) | LOC: EMS 15:50 | PROVIDERS: ATTEND Surgery | DX: R10.30 Lower abdominal pain, unspecified (principal) | CPT/HCPCS: A0425; A0429 ==

== ENCOUNTER 2020-03-10 13:35 | Emergency (ER) | payer MEDICARE, OTHER ==
[2020-03-10 14:07] LABS: MUDS CUTOFF CONCENTRATIONS CUTOFF CONC BELOW:
[2020-03-10 14:26] LABS: BASOPHILS % (AUTO) 0.6 %; EOSINOPHILS % (AUTO) 0.2 %; HGB - HEMOGLOBIN 12.1 g/dL (12.0-16.0); LYMPHOCYTES # (AUTO) 1.4 10^3/uL (1.5-3.5); LYMPHOCYTES % (AUTO) 26.5 %; MEAN CORPUSCULAR HEMOGLOBIN 30.9 pg (27.0-31.0); MEAN CORPUSCULAR HGB CONC 32.8 g/dL (32.0-36.0); MEAN CORPUSCULAR VOLUME 94.1 fL (81.0-99.0); MEAN PLATELET VOLUME 9.9 fL (7.9-10.8); MONOCYTES # (AUTO) 0.4 10^3/uL (0.0-1.0); MONOCYTES % (AUTO) 7.2 %; NEUTROPHILS # (AUTO) 3.4 10^3/uL (1.5-6.6); NEUTROPHILS % (AUTO) 65.3 %; PLT - PLATELET COUNT 234 10^3/uL (130-450); RED BLOOD COUNT 3.92 10^6/uL (4.20-5.40); WHITE BLOOD COUNT 5.1 x10^3/uL (4.8-10.8)
[2020-03-10 14:30] LABS: AMPHETAMINE SCREEN,URINE NEGATIVE (NEGATIVE); BENZODIAZEPINES SCREEN, URINE POSITIVE (NEGATIVE); COCAINE SCREEN URINE NEGATIVE (NEGATIVE); METHADONE SCREEN, URINE NEGATIVE (NEGATIVE); METHAMPHETAMINES SCREEN, URINE POSITIVE (NEGATIVE); OPIATE SCREEN, URINE POSITIVE (NEGATIVE); OXYCODONE SCREEN, URINE NEGATIVE (NEGATIVE); PROPOXYPHENE SCREEN, URINE NEGATIVE (NEGATIVE); TRICYCLIC ANTIDEPRESSANT,URINE NEGATIVE (NEGATIVE)
--- NOTE | 2020-03-10 14:36 | ED Physician Documentation ---
History of Present Illness - Stated complaint Stated Complaint: ETOH REFERRAL - Chief complaint Chief Complaint: General - History obtained from History obtained from: Patient - Additonal information Additional information: Patient comes emergency department complaining of wanting to get off of oxycodone and alcohol. She states she has been taking the oxycodone for many years, but could always get a prescription previously,. Now, she states she has for a number of months been buying oxycodone off the street. She states she takes 230 mg tablets every day. She also drinks about a bottle of wine a day. Patient states that she is just tired of doing this to herself, but that she is afraid of the withdrawals and wants to go to a detox facility if possible. Patient denies any recent illness otherwise. She states her last dose of oxycodone was this morning. She denies drinking any patient states she is otherwise healthy. No other complaints at this time. Review of Systems Ten Systems: 10 systems reviewed and negative Constitutional: reports: Reviewed and negative Eyes: reports: Reviewed and negative Ears: reports: Reviewed and negative Nose: reports: Reviewed and negative Throat: reports: Reviewed and negative Cardiac: reports: Reviewed and negative Respiratory: reports: Reviewed and negative GI: reports: Reviewed and negative : reports: Reviewed and negative Skin: reports: Reviewed and negative Musculoskeletal: reports: Reviewed and negative Neurologic: reports: Reviewed and negative Psychiatric: reports: Reviewed and negative Endocrine: reports: Reviewed and negative Immunocompromised: reports: Reviewed and negative PD PAST MEDICAL HISTORY - Past Medical History Past Medical History: No Cardiovascular: Hypertension Respiratory: None Endocrine/Autoimmune: None GI: None 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 : None HEENT: None Psych: None Musculoskeletal: None Derm: None - Past Surgical History Past Surgical History: Yes General: Hiatal hernia repair Ortho: Rotator cuff repair, Arthroscopic surgery /PREMIUM NOTE INTEREST CALCULATOR CLERK: section - Present Medications Home Medications: Ambulatory Orders Medication Instructions Recorded Confirmed Estradiol [Estrace] 0.5 mg PO Q48H 02/11/13 05/12/19 Medroxyprogesterone Acetate 2.5 mg PO Q48H 02/11/13 05/12/19 Pantoprazole Sodium [Protonix] 40 mg PO DAILY 02/11/13 05/12/19 Atenolol 50 mg PO DAILY 11/05/14 05/12/19 Amlodipine Besylate 10 mg PO DAILY 05/12/19 05/12/19 Bupropion HCl [Bupropion Xl] 150 mg PO DAILY 05/12/19 05/12/19 Celecoxib 100 mg PO BID 05/12/19 05/12/19 Disulfiram [Antabuse] 250 mg PO DAILY 05/12/19 05/12/19 lisinopriL [Lisinopril] 10 mg PO DAILY 05/12/19 05/12/19 Ciprofloxacin/Ciprofloxa HCl 500 mg PO BID #14 tbmp.24hr 05/13/19 [Ciprofloxacin ER 500 mg Tablet] Ferrous Gluconate [Iron] 240 mg PO DAILY #30 tablet 05/13/19 Oxycodone HCl/Acetaminophen 1 each PO Q8H PRN #6 tablet 05/13/19 [Percocet 5-325 mg Tablet] Thiamine [Vitamin B-1] 100 mg PO DAILY #30 tablet 05/13/19 Zolpidem [Ambien] 5 mg PO HS #6 tablet 05/13/19 Ondansetron Odt [Zofran] 4 mg TL Q6H PRN #20 tablet 05/15/19 Oxycodone HCl/Acetaminophen 1 - 2 each PO Q6H PRN #20 tablet 05/15/19 [Percocet 5-325 mg Tablet] diphenhydrAMINE [Benadryl] 25 mg PO Q4-6H PRN 1 Days #4 03/10/20 capsule - Allergies Allergies/Adverse Reactions: Allergies Allergy/AdvReac Type Severity Reaction Status Date / Time No Known Drug Allergies Allergy Verified 03/10/20 13:40 - Social History Does the pt smoke?: No Smoking Status: Never smoker Does the pt drink ETOH?: No Does the pt have substance abuse?: No - Immunizations Immunizations are current?: Yes - POLST Patient has POLST: No POLST Status: Full Code PD ED PE NORMAL - Vitals Vital signs reviewed: Yes - General General: Alert and oriented X 3, No acute distress - HEENT HEENT: Atraumatic, PERRL, EOMI, Moist mucous membranes - Neck Neck: Supple, no meningeal sign - Cardiac Cardiac: RRR, No murmur, Strong equal pulses - Respiratory Respiratory: No respiratory distress, Clear bilaterally - Abdomen Abdomen: Soft, Non tender, Non distended - Back Back: Other (Grossly normal.) - Derm Derm: Normal color, Warm and dry, No rash - Extremities Extremities: No deformity, Normal ROM s pain, No edema, No calf tenderness / cord, Other - Neuro Neuro: Alert and oriented X 3, 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, No motor deficit, No sensory deficit, Normal speech - Psych Psych: Normal mood, Normal affect (Occasionally tearful but otherwise normal.) Results - Vitals Vitals: Oxygen O2 Source Room air - Labs Labs: Laboratory Tests 03/10/20 03/10/20 03/10/20 14:00 14:12 14:12 WBC 5.1 RBC 3.92 L Hgb 12.1 Hct 36.9 L MCV 94.1 MCH 30.9 MCHC 32.8 RDW 13.0 Plt Count 234 MPV 9.9 Neut # (Auto) 3.4 Lymph # (Auto) 1.4 L [place] # (Auto) 0.4 Eos # (Auto) 0.0 Baso # (Auto) 0.0 Absolute Nucleated RBC 0.00 Nucleated RBC % 0.0 Sodium 138 Potassium 3.8 Chloride 96 L Carbon Dioxide 31 Anion Gap 11.0 BUN 16 Creatinine 1.0 Estimated GFR (MDRD) 56 L Glucose 80 Calcium 8.9 Total Bilirubin 0.7 AST 23 ALT 19 Alkaline Phosphatase 84 Total Protein 7.4 Albumin 3.9 Globulin 3.5 Albumin/Globulin Ratio 1.1 Lipase 24 TSH Urine Opiates Screen POSITIVE H Ur Oxycodone Screen NEGATIVE Urine Methadone Screen NEGATIVE Ur Propoxyphene Screen NEGATIVE Ur Barbiturates Screen NEGATIVE Ur Tricyclics Screen NEGATIVE Ur Phencyclidine Scrn NEGATIVE Ur Amphetamine Screen NEGATIVE U Methamphetamines Scrn POSITIVE H U Benzodiazepines Scrn POSITIVE H Urine Cocaine Screen NEGATIVE U Cannabinoids Screen POSITIVE H Ethyl Alcohol < 5.0 Coronavirus (PCR) 03/10/20 03/10/20 14:30 15:30 WBC RBC Hgb Hct MCV MCH MCHC RDW Plt Count MPV Neut # (Auto) Lymph # (Auto) [place] # (Auto) Eos # (Auto) Baso # (Auto) Absolute Nucleated RBC Nucleated RBC % Sodium Potassium Chloride Carbon Dioxide Anion Gap BUN Creatinine Estimated GFR (MDRD) Glucose Calcium Total Bilirubin AST ALT Alkaline Phosphatase Total Protein Albumin Globulin Albumin/Globulin Ratio Lipase TSH 1.02 Urine Opiates Screen Ur Oxycodone Screen Urine Methadone Screen Ur Propoxyphene Screen Ur Barbiturates Screen Ur Tricyclics Screen Ur Phencyclidine Scrn Ur Amphetamine Screen U Methamphetamines Scrn U Benzodiazepines Scrn Urine Cocaine Screen U Cannabinoids Screen Ethyl Alcohol Coronavirus (PCR) NEGATIVE PD MEDICAL DECISION MAKING - ED course Complexity details: reviewed results, re-evaluated patient, considered differential, d/w patient ED course: Patient was worked up with medical clearance labs, including urine drug screen. We did speak with the [facility], who had beds available and was willing to take the patient. However, when they saw that the pt's drug screen was positive for benzos, they declined to take the pt after all. 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 I have given her the option to remain in the ED until then as a pt, or to seek care tomorrow. I have advised her not to take any more of her benzodiazepine medication, as she will have more options if she does not have this in her system. Pt would prefer to go home to her dog. She is not exhibiting signs of withdrawal from anything at this time. We have discussed symptomatic management at home, as well as the usual indications for return. Departure - Departure Disposition: 01 Home, Self Care Clinical Impression: Polysubstance abuse Condition: Stable Instructions: ED Drug Abuse General Prescriptions: diphenhydrAMINE [Benadryl] 25 mg PO Q4-6H PRN 1 Days #4 capsule PRN Reason: Insomnia Discharge Date/Time: 03/10/20 17:06
[2020-03-10 14:43] LABS: ALBUMIN 3.9 g/dL (3.2-5.5); ALBUMIN/GLOBULIN RATIO 1.1 (1.0-2.2); ALKALINE PHOSPHATASE 84 IU/L (42-121); ALT ALANINE AMINOTRANSFERASE 19 IU/L (10-60); AST ASPARTATE AMINOTRANSFERASE 23 IU/L (10-42); BILIRUBIN,TOTAL 0.7 mg/dL (0.2-1.0); BUN - BLOOD UREA NITROGEN 16 mg/dL (6-20); CALCIUM 8.9 mg/dL (8.5-10.3); CARBON DIOXIDE - CO2 31 mmol/L (21-32); CHLORIDE 96 mmol/L (101-111); GLUCOSE 80 mg/dL (70-100); LIPASE 24 U/L (22-51); SODIUM 138 mmol/L (135-145); TOTAL PROTEIN 7.4 g/dL (6.7-8.2)
[2020-03-10 16:17] VITALS: BP 163/81
== END 2020-03-10 17:06 | disposition home or self-care (01) ==
LOC: ED 13:35
DX: F11.10 Opioid abuse, uncomplicated (principal); F10.10 Alcohol abuse, uncomplicated; F15.10 Other stimulant abuse, uncomplicated; F13.10 Sedative, hypnotic or anxiolytic abuse, uncomplicated; Z11.59 Encounter for screening for other viral diseases; I10 Essential (primary) hypertension
CPT/HCPCS: 36415; 80053; 80306; 80320; 81599; 83690; 84443; 85025; 99283

== ENCOUNTER 2020-09-07 11:51 | Outpatient (CLI) | payer OTHER ==
--- NOTE | 2020-09-07 13:42 | Ultrasound Report ---
PROCEDURE: Duplex Ext Veins Left INDICATIONS: LT LEG PAIN AND EDEMA TECHNIQUE: Real-time imaging, as well as color and pulse Doppler interrogation, were performed of the lower extr emity deep veins from the inguinal ligament to the popliteal fossa. COMPARISON: None. FINDINGS: The deep veins are normally compressible, and free of intraluminal thrombus. Color and pu lse Doppler demonstrate normal phasic intraluminal flow. There is normal augmentation response to di stal compression maneuver. IMPRESSION: No deep vein thrombosis of the left lower extremity. Reviewed by: Lashonda Harden MD on 09/07/2020 1:40 PM PST Approved by: Lashonda Harden MD on 09/07/2020 1:40 PM PST Station ID: [id number]
== END 2020-09-07 11:52 | disposition home or self-care (01) ==
LOC: DI 11:51
PROVIDERS: ATTEND Internal Medicine
DX: M79.605 Pain in left leg (principal); R60.9 Edema, unspecified

== ENCOUNTER 2020-09-07 14:11 | Outpatient (CLI) | payer OTHER ==
--- NOTE | 2020-09-07 15:16 | XRAY Report ---
PROCEDURE: Ankle 3 View LT INDICATIONS: LEFT LEG PAIN TECHNIQUE: 3 views of the ankle were acquired. COMPARISON: None FINDINGS: Bones: No fractures or dislocations. Ankle mortise is normally aligned. No suspicious bony lesions . Soft tissues: No tibiotalar joint effusion. Achilles tendon appears normal. IMPRESSION: No acute fracture. No osseous lesion. If symptoms and/or clinical suspicion for patholog y continue, further assessment with repeat plain films, or advanced imaging (e.g., CT, MRI, or bone s can) is recommended for further assessment. Reviewed by: Faith Rose MD on 09/07/2020 3:14 PM PST Approved by: Faith Rose MD on 09/07/2020 3:14 PM PST Station ID: [id number]
--- NOTE | 2020-09-07 15:41 | XRAY Report ---
PROCEDURE: Foot 3 View LT INDICATIONS: LEFT LEG PAIN TECHNIQUE: 3 views of the foot were acquired. COMPARISON: None FINDINGS: Bones: Post surgical changes are noted in first and second toe with surgical hardware within first a nd second metatarsal heads. Osteoarthritic changes are noted in first and second TMT joints. Osteoart hritic changes involving second through fifth TMT joints also seen. No acute fractures or dislocation s. No gross hardware loosening or failure. Well-defined plantar calcaneal enthesophyte is seen. No abraham spicious bony lesions. Soft tissues: No tibiotalar joint effusion. Achilles tendon appears normal. IMPRESSION: Postsurgical changes in first and second metatarsal heads. No gross hardware complication. Osteoarthr itic changes and first and second MTP joints as well as second through fifth MTP joints. No acute fra cture or dislocation. Reviewed by: Kevon Garcia MD on 09/07/2020 3:39 PM PST Approved by: Kevon Garcia MD on 09/07/2020 3:39 PM PST Station ID: [id number]
== END 2020-09-07 14:12 | disposition home or self-care (01) ==
LOC: DI 14:11
PROVIDERS: ATTEND Internal Medicine
DX: M79.605 Pain in left leg (principal)

== ENCOUNTER 2020-11-11 12:35 | Outpatient (CLI) | payer OTHER | END 2020-11-11 12:36 | disposition home or self-care (01) | LOC: LAB 12:35 | PROVIDERS: ATTEND Internal Medicine | DX: M25.50 Pain in unspecified joint (principal) | CPT/HCPCS: 36415; 84550 ==

== ENCOUNTER 2020-12-09 15:23 | Outpatient (CLI) | payer OTHER ==
--- NOTE | 2020-12-09 17:14 | CT Report ---
PROCEDURE: Abdomen/Pelvis WO INDICATIONS: RT FLANK PAIN TECHNIQUE: Noncontrast 5 mm thick sections acquired from the diaphragms to the symphysis. 5 mm coronal and sagi ttal reformats were then performed. For radiation dose reduction, the following was used: automated exposure control, adjustment of mA and/or kV according to patient size. COMPARISON: None. FINDINGS: Image quality: Excellent. ABDOMEN: Lung bases: Lung bases are clear. Heart size is normal. Solid organs: Liver and spleen are normal in size. Gallbladder contains a 2 cm calcified gallstone but does not demonstrate definite acute cholecystitis or associated biliary obstruction Pancreas is normal in contours. No adrenal nodules. Kidneys are normal in size, without hydronephrosis or nephr olithiasis. Peritoneum and bowel: Unenhanced bowel loops demonstrate normal wall thickness and caliber. No free fluid or air. Nodes and vessels: No retroperitoneal or mesenteric adenopathy by size criteria. Aorta and inferior vena cava are normal in caliber. Miscellaneous: No ventral hernias. PELVIS: Genitourinary: Bladder wall thickness is normal. Note is made of a calcification at the anterior an teverted uterus, likely dystrophic calcification within a fibroid. This is not located within the jorge dder lumen or distal ureters. Miscellaneous: No inguinal hernias or adenopathy. Bones: No suspicious bony lesions. No vertebral body compression fractures. IMPRESSION: Large 2 cm gallstone within the gallbladder lumen, please correlate for whether this could explain cu rrent symptomatology. Note is made of no evidence of acute or chronic obstruction of the urinary tract, or urinary tract in flammation on the right. Focal calcification within the anteverted uterus over the bladder region, likely a focus of dystrophi c calcification within a fibroid. Note is made of generalized colonic obstipation bilaterally within the abdomen and pelvis. Reviewed by: Joselito Carrasco MD on 12/09/2020 5:12 PM PDT Approved by: Joselito Carrasco MD on 12/09/2020 5:12 PM PDT Station ID: [id number]
== END 2020-12-09 15:24 | disposition home or self-care (01) ==
LOC: DI 15:23
PROVIDERS: ATTEND Internal Medicine
DX: K80.20 Calculus of gallbladder without cholecystitis without obstruction (principal); R93.89 Abnormal findings on diagnostic imaging of other specified body structures; K59.00 Constipation, unspecified

== ENCOUNTER 2021-05-30 14:07 | Emergency (ER) | payer OTHER ==
[2021-05-30] MEDS ORDERED: BUPRENORPHINE 0.3 MG/ML VIAL IM ONE (17:02)
--- NOTE | 2021-05-30 17:12 | ED Physician Documentation ---
History of Present Illness - Stated complaint Stated Complaint: WITHDRAWL - Chief complaint Chief Complaint: General - History obtained from History obtained from: Patient - History of Present Illness Timing: How many weeks ago (1) Pain level max: 6 Pain level now: 5 - Additonal information Additional information: Is a 65-year-old female who states she ran out of her Suboxone 1 week ago. She states that her prescription is not ready at the pharmacy and so she came here for help. She has had nausea, body aches and diarrhea. Nothing makes it better or worse. Review of Systems Constitutional: denies: Fever, Chills Cardiac: denies: Chest pain / pressure, Palpitations Respiratory: denies: Cough GI: reports: Nausea, Vomiting, Diarrhea Skin: denies: Rash Musculoskeletal: denies: Neck pain, Back pain Neurologic: denies: Headache PD PAST MEDICAL HISTORY - Past Medical History Cardiovascular: Hypertension Respiratory: None Endocrine/Autoimmune: None GI: None TOUR GUIDE: None : None HEENT: None Psych: None Musculoskeletal: None Derm: None - Past Surgical History Past Surgical History: Yes General: Hiatal hernia repair Ortho: Rotator cuff repair, Arthroscopic surgery /TOUR GUIDE: section - Present Medications Home Medications: Ambulatory Orders Medication Instructions Recorded Confirmed Estradiol [Estrace] 0.5 mg PO Q48H 02/11/13 05/12/19 Medroxyprogesterone Acetate 2.5 mg PO Q48H 02/11/13 05/12/19 Pantoprazole Sodium [Protonix] 40 mg PO DAILY 02/11/13 05/12/19 Atenolol 50 mg PO DAILY 11/05/14 05/12/19 Amlodipine Besylate 10 mg PO DAILY 05/12/19 05/12/19 Celecoxib 100 mg PO BID 05/12/19 05/12/19 Disulfiram [Antabuse] 250 mg PO DAILY 05/12/19 05/12/19 buPROPion HCL [Bupropion Xl] 150 mg PO DAILY 05/12/19 05/12/19 lisinopriL [Lisinopril] 10 mg PO DAILY 05/12/19 05/12/19 Ciprofloxacin/Ciprofloxa HCl 500 mg PO BID #14 tbmp.24hr 05/13/19 [Ciprofloxacin ER 500 mg Tablet] Ferrous Gluconate [Iron] 240 mg PO DAILY #30 tablet 05/13/19 Oxycodone HCl/Acetaminophen 1 each PO Q8H PRN #6 tablet 05/13/19 [Percocet 5-325 mg Tablet] Thiamine [Vitamin B-1] 100 mg PO DAILY #30 tablet 05/13/19 Zolpidem [Ambien] 5 mg PO HS #6 tablet 05/13/19 Ondansetron Odt [Zofran] 4 mg TL Q6H PRN #20 tablet 05/15/19 Oxycodone HCl/Acetaminophen 1 - 2 each PO Q6H PRN #20 tablet 05/15/19 [Percocet 5-325 mg Tablet] diphenhydrAMINE [Benadryl] 25 mg PO Q4-6H PRN 1 Days #4 03/10/20 capsule - Allergies Allergies/Adverse Reactions: Allergies Allergy/AdvReac Type Severity Reaction Status Date / Time No Known Drug Allergies Allergy Verified 03/10/20 13:40 - Social History Does the pt smoke?: No Smoking Status: Never smoker Does the pt drink ETOH?: No Does the pt have substance abuse?: No - Immunizations Immunizations are current?: Yes - POLST Patient has POLST: No POLST Status: Full Code PD ED PE NORMAL - Vitals Vital signs reviewed: Yes - General General: Alert and oriented X 3, No acute distress, Well developed/nourished - HEENT HEENT: PERRL, Moist mucous membranes - Neck Neck: Supple, no meningeal sign - Cardiac Cardiac: RRR, Strong equal pulses - Respiratory Respiratory: No respiratory distress, Clear bilaterally - Abdomen Abdomen: Soft, Non tender, Non distended - Derm Derm: Warm and dry - Extremities Extremities: No edema - Neuro Neuro: Alert and oriented X 3 - Psych Psych: Normal mood, Normal affect Results - Vitals Vitals: Vital Signs - 24 hr 05/30/21 05/30/21 05/30/21 14:33 16:50 18:22 Temperature 36.8 C Heart Rate 70 58 L 65 Respiratory 16 18 18 Rate Blood Pressure 119/68 210/89 H 195/90 H O2 Saturation 99 100 99 Oxygen O2 Source Room air PD MEDICAL DECISION MAKING - ED course Complexity details: reviewed results, re-evaluated patient, considered differential, d/w patient ED course: Patient given a dose of buprenorphine and Phenergan. Symptoms improved. Her regular prescription was available for pickup, she will go pick this up for her Suboxone. Patient counseled regarding signs and symptoms for which I believe and urgent re-evaluation would be necessary. Patient with good understanding of and agreement to plan and is comfortable going home at this time This document was made in part using voice recognition software. While efforts are made to proofread this document, sound alike and grammatical errors may occur. Departure - Departure Disposition: 01 Home, Self Care Clinical Impression: Narcotic withdrawal Condition: Good Instructions: ED Withdrawal Narcotic Follow-Up: Danita Espitia MD [Primary Care Provider] - Comments: Your Suboxone prescription is ready at [facility]. Please go order picker your prescription. Discharge Date/Time: 05/30/21 18:25
[2021-05-30] MEDS ORDERED: PROMETHAZINE 25 MG/1 ML VIAL IM STA (17:53)
[2021-05-30 18:25] VITALS: BP 195/90
== END 2021-05-30 18:25 | disposition home or self-care (01) ==
LOC: ED 14:07
DX: F11.23 Opioid dependence with withdrawal (principal); I10 Essential (primary) hypertension
CPT/HCPCS: 96372; 99283; J0592

== ENCOUNTER 2021-06-30 11:03 | Outpatient (CLI) | payer OTHER ==
--- NOTE | 2021-06-30 11:59 | CT Report ---
PROCEDURE: HEAD WO INDICATIONS: MEMORY LOSS TECHNIQUE: Noncontrast 4.5 mm thick angled axial sections acquired from the foramen magnum to the vertex. For r adiation dose reduction, the following was used: automated exposure control, adjustment of mA and/or kV according to patient size. COMPARISON: None. FINDINGS: Image quality: Excellent. CSF spaces: Basal cisterns are patent. No extra-axial fluid collections. Ventricles are normal in size and shape. Brain: No midline shift. No intracranial masses or hemorrhage. Clay-white matter interface is norm al. Skull and face: Calvarium and visualized facial bones are intact, without suspicious lesions. Sinuses: Visualized sinuses and mastoids are clear. IMPRESSION: Head CT is within normal limits for age. Reviewed by: Nikita Michael MD on 06/30/2021 11:58 AM PDT Approved by: Nikita Michael MD on 06/30/2021 11:58 AM PDT Station ID: [id number]
== END 2021-06-30 11:04 | disposition home or self-care (01) ==
LOC: DI 11:03
PROVIDERS: ATTEND Internal Medicine
DX: R41.3 Other amnesia (principal)

== ENCOUNTER 2021-07-26 09:06 | Outpatient (CLI) | payer OTHER ==
--- NOTE | 2021-07-26 16:09 | Ultrasound Report ---
PROCEDURE: Abdomen Complete INDICATIONS: R14.0 ABD DISTENSION TECHNIQUE: Real-time scanning was performed of the abdominal and retroperitoneal organs, with image documentatio n. COMPARISON: None. FINDINGS: Liver: Mild hepatomegaly. Normal hepatic echo pattern. No masses. Gallbladder: There is a large stone measuring approximately 3 cm in maximum diameter. No gallbladder wall thickening or pain on examination. Minimal fluid near the gallbladder. Biliary ducts: Intrahepatic bile ducts are non-dilated. Extrahepatic bile duct caliber measures 3.3 mm. The common hepatic duct measures 1.3 mm. Normal is 6-7 mm or less in diameter, or 10 mm or less post-cholecystectomy. Pancreas: Visualized portions of the pancreas are sonographically normal. Spleen: Spleen is normal in size and homogeneous in echotexture. Kidneys: Kidneys are normal in size and echotexture. Right kidney measures 11.0 cm long; left kidne y measures 10.9 cm long. No hydronephrosis or nephrolithiasis. No solid masses. Aorta: Visualized aorta is normal in caliber at less than 3 cm. Iliacs: Proximal common iliac arteries are normal in caliber at less than 2.5 cm. IVC: Intrahepatic inferior vena cava is patent. Miscellaneous: No free abdominal fluid. IMPRESSION: 1. Cholelithiasis. 2. Mild cardiomegaly. 3. Trace perihepatic ascites. Reviewed by: Terell Patricia MD on 07/26/2021 4:08 PM PST Approved by: Terell Patricia MD on 07/26/2021 4:08 PM PST Station ID: [id number]
== END 2021-07-26 09:07 | disposition home or self-care (01) ==
LOC: DI 09:06
PROVIDERS: ATTEND Internal Medicine
DX: K80.20 Calculus of gallbladder without cholecystitis without obstruction (principal); I51.7 Cardiomegaly

== ENCOUNTER 2021-08-21 08:00 | Outpatient (CLI) | payer OTHER ==
[2021-08-21 17:07] LABS: B. PARAPERTUSSIS- RESP PCR PAN NOT DETECTED; B. PERTUSSIS- RESP PCR PANEL NOT DETECTED; C. PNEUMONIAE- RESP PCR PANEL NOT DETECTED; CORONAVIRUS 229E-RESP PCR NOT DETECTED; CORONAVIRUS HKU1-RESP PCR NOT DETECTED; CORONAVIRUS NL63-RESP PCR NOT DETECTED; CORONAVIRUS OC43-RESP PCR NOT DETECTED; HUMAN METAPNEUMOVIRUS NOT DETECTED; INFLUENZA A- RESP PCR PANEL NOT DETECTED; INFLUENZA B - RESP PCR PANEL NOT DETECTED; M. PNEUMONIAE- RESP PCR PANEL NOT DETECTED; PARAINFLUENZA VIRUS 1 NOT DETECTED; PARAINFLUENZA VIRUS 2 NOT DETECTED; PARAINFLUENZA VIRUS 3 NOT DETECTED; PARAINFLUENZA VIRUS 4 NOT DETECTED; RHINOVIRUS/ENTEROVIRUS NOT DETECTED; RSV- RESP PCR PANEL NOT DETECTED; SARS-CoV-2 -RESP PCR PANEL NOT DETECTED
== END 2021-08-21 23:59 ==
LOC: LAB.R 08:00
PROVIDERS: ATTEND Internal Medicine
DX: Z11.52 Encounter for screening for COVID-19 (principal)
CPT/HCPCS: 0202U

== ENCOUNTER 2021-09-18 08:00 | Outpatient (CLI) | payer OTHER ==
[2021-09-18 18:10] LABS: RED BLOOD COUNT 4.48 10^6/uL (4.20-5.40); WHITE BLOOD COUNT 5.6 x10^3/uL (4.8-10.8)
[2021-09-18 18:11] LABS: BASOPHILS % (AUTO) 0.5 %; EOSINOPHILS # (AUTO) 0.1 10^3/uL (0.0-0.7); EOSINOPHILS % (AUTO) 0.9 %; HCT - HEMATOCRIT 40.1 % (37.0-47.0); LYMPHOCYTES # (AUTO) 1.7 10^3/uL (1.5-3.5); LYMPHOCYTES % (AUTO) 30.9 %; MEAN CORPUSCULAR HGB CONC 32.4 g/dL (32.0-36.0); MEAN CORPUSCULAR VOLUME 89.5 fL (81.0-99.0); MEAN PLATELET VOLUME 11.9 fL (7.9-10.8); MONOCYTES # (AUTO) 0.3 10^3/uL (0.0-1.0); MONOCYTES % (AUTO) 5.4 %; NEUTROPHILS # (AUTO) 3.5 10^3/uL (1.5-6.6); NEUTROPHILS % (AUTO) 62.1 %; PLT - PLATELET COUNT 255 10^3/uL (130-450); RED CELL DISTRIBUTION WIDTH 13.7 % (12.0-15.0)
[2021-09-19 00:18] LABS: ALBUMIN 4.1 g/dL (3.2-5.5); ALBUMIN/GLOBULIN RATIO 1.3 (1.0-2.2); ALKALINE PHOSPHATASE 95 IU/L (42-121); ALT ALANINE AMINOTRANSFERASE 14 IU/L (10-60); AST ASPARTATE AMINOTRANSFERASE 22 IU/L (10-42); BILIRUBIN,TOTAL 0.5 mg/dL (0.2-1.0); BUN - BLOOD UREA NITROGEN 17 mg/dL (6-20); CALCIUM 9.6 mg/dL (8.5-10.3); CARBON DIOXIDE - CO2 27 mmol/L (21-32); CHLORIDE 102 mmol/L (101-111); CHOL/HDL RATIO 2.9 (<4.4); CHOLESTEROL 200 mg/dL; CREATININE 0.9 mg/dL (0.4-1.0); GFR - MDRD 63 (>89); GLUCOSE 93 mg/dL (70-100); HDL CHOLESTEROL 70 mg/dL; LDL CHOLESTEROL,CALCULATED 119 mg/dL; LDL/HDL RATIO 1.7 (<4.4); SODIUM 139 mmol/L (135-145); TOTAL PROTEIN 7.2 g/dL (6.7-8.2); TRIGLYCERIDES 55 mg/dL; VLDL CHOLESTEROL 11 mg/dL
== END 2021-09-18 23:59 ==
LOC: LAB.R 08:00
PROVIDERS: ATTEND Internal Medicine
DX: Z00.00 Encounter for general adult medical examination without abnormal findings (principal); R10.9 Unspecified abdominal pain; F41.9 Anxiety disorder, unspecified; F32.9 Major depressive disorder, single episode, unspecified; E78.5 Hyperlipidemia, unspecified; I10 Essential (primary) hypertension; E78.1 Pure hyperglyceridemia
CPT/HCPCS: 80053; 80061; 83721; 84443; 85025

== ENCOUNTER 2022-01-25 08:35 | Outpatient (CLI) | payer OTHER | END 2022-01-25 08:36 | disposition critical access hospital (66) | LOC: EMS 08:35 | DX: I16.9 Hypertensive crisis, unspecified (principal) | CPT/HCPCS: A0425; A0427 ==

== ENCOUNTER 2022-01-25 08:45 | Emergency (ER) | payer OTHER ==
--- NOTE | 2022-01-25 09:06 | ED Physician Documentation ---
PD HPI ABD PAIN - Stated complaint Stated Complaint: SOA - Chief complaint Chief Complaint: Cardiac - History obtained from History obtained from: Patient - History of Present Illness Timing - onset: How many hours ago (7), Last night (2 am) Timing - duration: Hours Timing - details: Abrupt onset, Still present Quality: Aching, Pain Location: Epigastric, Other (substernal) Associated symptoms: Nausea, Vomiting. No: Diarrhea Similar symptoms before: Has not had sx before Review of Systems Constitutional: denies: Fever, Chills Nose: denies: Rhinorrhea / runny nose, Congestion Throat: denies: Sore throat Cardiac: reports: Chest pain / pressure (since last night). denies: Palpitations, Pedal edema Respiratory: denies: Cough GI: reports: Abdominal Pain (just since last night). denies: Vomiting, Diarrhea, Bloody / black stool Skin: denies: Rash Musculoskeletal: denies: Extremity swelling, Joint swelling PD PAST MEDICAL HISTORY - Past Medical History Cardiovascular: Hypertension Respiratory: None Endocrine/Autoimmune: None GI: None DIRECTOR CENTER: None : None HEENT: None Psych: None Musculoskeletal: None Derm: None - Past Surgical History Past Surgical History: Yes General: Hiatal hernia repair Ortho: Rotator cuff repair, Arthroscopic surgery /DIRECTOR CENTER: section - Present Medications Home Medications: Ambulatory Orders Medication Instructions Recorded Confirmed Estradiol [Estrace] 0.5 mg PO Q48H 02/11/13 05/12/19 Medroxyprogesterone Acetate 2.5 mg PO Q48H 02/11/13 05/12/19 Pantoprazole Sodium [Protonix] 40 mg PO DAILY 02/11/13 05/12/19 Atenolol 50 mg PO DAILY 11/05/14 05/12/19 Amlodipine Besylate 10 mg PO DAILY 05/12/19 05/12/19 Celecoxib 100 mg PO BID 05/12/19 05/12/19 Disulfiram [Antabuse] 250 mg PO DAILY 05/12/19 05/12/19 buPROPion HCL [Bupropion Xl] 150 mg PO DAILY 05/12/19 05/12/19 lisinopriL [Lisinopril] 10 mg PO DAILY 05/12/19 05/12/19 Ciprofloxacin/Ciprofloxa HCl 500 mg PO BID #14 tbmp.24hr 05/13/19 [Ciprofloxacin ER 500 mg Tablet] Ferrous Gluconate [Iron] 240 mg PO DAILY #30 tablet 05/13/19 Oxycodone HCl/Acetaminophen 1 each PO Q8H PRN #6 tablet 05/13/19 [Percocet 5-325 mg Tablet] Thiamine [Vitamin B-1] 100 mg PO DAILY #30 tablet 05/13/19 Zolpidem [Ambien] 5 mg PO HS #6 tablet 05/13/19 Ondansetron Odt [Zofran] 4 mg TL Q6H PRN #20 tablet 05/15/19 Oxycodone HCl/Acetaminophen 1 - 2 each PO Q6H PRN #20 tablet 05/15/19 [Percocet 5-325 mg Tablet] diphenhydrAMINE [Benadryl] 25 mg PO Q4-6H PRN 1 Days #4 03/10/20 capsule - Allergies Allergies/Adverse Reactions: Allergies Allergy/AdvReac Type Severity Reaction Status Date / Time No Known Drug Allergies Allergy Verified 01/25/22 08:54 - Social History Does the pt smoke?: No Smoking Status: Never smoker Does the pt drink ETOH?: No Does the pt have substance abuse?: No - Immunizations Immunizations are current?: Yes - POLST Patient has POLST: No POLST Status: Full Code PD ED PE NORMAL - Vitals Vital signs reviewed: Yes - General General: Alert and oriented X 3, Well developed/nourished, Other (She appears in considerable distress with upper abdominal pain and holding an emesis bag.) - HEENT HEENT: Pharynx benign - Neck Neck: Supple, no meningeal sign, No adenopathy - Cardiac Cardiac: RRR, No murmur - Respiratory Respiratory: Clear bilaterally - Abdomen Abdomen: Soft, Non distended, Other (She is significantly tender in the epigastric area with guarding.) - Back Back: No CVA TTP - Derm Derm: Warm and dry. No: Normal color (pallor) - Extremities Extremities: No tenderness to palpate, Normal ROM s pain, No edema, No calf tenderness / cord - Neuro Neuro: Alert and oriented X 3, No motor deficit, Normal speech Results - Vitals Vitals: Vital Signs - 24 hr 01/25/22 01/25/22 08:52 09:49 Temperature 36.6 C Heart Rate 83 98 Respiratory 20 23 Rate Blood Pressure 177/110 H 166/112 H O2 Saturation 99 97 Oxygen O2 Source Room air - EKG (time done) 08:57 Rate: Rate (enter#) (75) Rhythm: NSR Intervals: Normal WI Ischemia: Normal ST segments, ST depression, T wave inversion (deep inversions anterior leads concerning for AMI by Wellens criteria. ). No: ST elevation c/w ischemia - Labs Labs: Laboratory Tests 01/25/22 01/25/22 01/25/22 09:12 09:12 09:12 WBC 20.7 H RBC 5.00 Hgb 14.6 Hct 42.8 MCV 85.6 MCH 29.2 MCHC 34.1 RDW 13.1 Plt Count 288 MPV 10.3 Neut # (Auto) 19.0 H Lymph # (Auto) 1.0 L Freeborn # (Auto) 0.5 Eos # (Auto) 0.0 Baso # (Auto) 0.0 Absolute Nucleated RBC 0.00 Nucleated RBC % 0.0 Manual Slide Review Indicated RBC Morph Micro Appear 1+ ANISOCYTOSIS Sodium 134 L Potassium 3.4 L Chloride 99 L Carbon Dioxide 20 L Anion Gap 15.0 H BUN 20 Creatinine 0.9 Estimated GFR (MDRD) 63 L Glucose 170 H Calcium 9.5 Magnesium 1.7 Total Bilirubin 0.9 AST 22 ALT 22 Alkaline Phosphatase 90 Troponin I High Sens 252.8 H* Total Protein 7.8 Albumin 4.1 Globulin 3.7 Albumin/Globulin Ratio 1.1 Lipase 23 Nasal Adenovirus (PCR) Nasal B. parapertussis DNA (PCR) Nasal Coronavir 229E PCR Nasal Coronavir HKU1 PCR Nasal Coronavir NL63 PCR Nasal Coronavir OC43 PCR Nasal Enterovir/Rhinovir PCR Nasal Influenza B PCR Nasal Influenza A PCR Nasal Parainfluen 1 PCR Nasal Parainfluen 2 PCR Nasal Parainfluen 3 PCR Nasal Parainfluen 4 PCR Nasal RSV (PCR) Nasal B.pertussis DNA PCR Nasal C.pneumoniae (PCR) Justino Human Metapneumo PCR Nasal M.pneumoniae (PCR) Nasal SARS-CoV-2 (PCR) 01/25/22 09:43 WBC RBC Hgb Hct MCV MCH MCHC RDW Plt Count MPV Neut # (Auto) Lymph # (Auto) Freeborn # (Auto) Eos # (Auto) Baso # (Auto) Absolute Nucleated RBC Nucleated RBC % Manual Slide Review RBC Morph Micro Appear Sodium Potassium Chloride Carbon Dioxide Anion Gap BUN Creatinine Estimated GFR (MDRD) Glucose Calcium Magnesium Total Bilirubin AST ALT Alkaline Phosphatase Troponin I High Sens Total Protein Albumin Globulin Albumin/Globulin Ratio Lipase Nasal Adenovirus (PCR) NOT DETECTED Nasal B. parapertussis DNA (PCR) NOT DETECTED Nasal Coronavir 229E PCR NOT DETECTED Nasal Coronavir HKU1 PCR NOT DETECTED Nasal Coronavir NL63 PCR NOT DETECTED Nasal Coronavir OC43 PCR NOT DETECTED Nasal Enterovir/Rhinovir PCR NOT DETECTED Nasal Influenza B PCR NOT DETECTED Nasal Influenza A PCR NOT DETECTED Nasal Parainfluen 1 PCR NOT DETECTED Nasal Parainfluen 2 PCR NOT DETECTED Nasal Parainfluen 3 PCR NOT DETECTED Nasal Parainfluen 4 PCR NOT DETECTED Nasal RSV (PCR) NOT DETECTED Nasal B.pertussis DNA PCR NOT DETECTED Nasal C.pneumoniae (PCR) NOT DETECTED Justino Human Metapneumo PCR NOT DETECTED Nasal M.pneumoniae (PCR) NOT DETECTED Nasal SARS-CoV-2 (PCR) NOT DETECTED - Rads (name of study) chest xray Radiology: Prelim report reviewed, See rad report ("impressive congestive heart failure") chest/abd angio Radiology: Prelim report reviewed (gallstone with distended gallbladder. No aortic abnormality. CHF. Stenosis or right renal artery takeoff. ), See rad report PD MEDICAL DECISION MAKING - ED course Complexity details: reviewed results (Minimal improvement with nitroglycerin. Decreased pain with morphine and less nausea with ondansetron.), re-evaluated patient (The patient had a repeat EKG which showed the persistence of the deep T wave inversions leads V1 through V3 consistent with acute anterior AZ with Wellens criteria. CT of the chest and abdomen did not show any acute dissections or aneurysms. We will expedite treatment for acute AZ.), considered differential (She has upper abdominal to lower chest pain associated with nausea. Tenderness in the upper abdomen. She does however complain of dyspnea and chest pain 2. EKG shows T wave inversions anteriorly. However concern for aortic dissection or aneurysm as well as potential acute cholecystitis or other ), d/w patient, d/w it consultant (The initial EKG had ischemic changes anteriorly. Repeat at 1 hour showed similar findings. No ST elevation per se but consistent with Wellens criteria. I talked with the emergency physician at [facility]. Since there were no ST elevations, he had to consult with cardiology. ) ED course: Concern for other potential causes such as aortic dissection or aneurysm. She also had upper abdominal pain so consider EKG changes with acute cholecystitis etc. However most concerning was EKG potentially showing acute AZ anteriorly with Wellens criteria. However I did feel excluding aortic issues was important and did a CT it of the chest. This did not show any acute aortic problems. I therefore contacted [facility] for expedited transfer for STEMI equivalent. The netting inspector was consulted by the ER physician there and accepted transfer based on the EKG and symptoms. The patient's ER course was somewhat prolonged from atypical acute AZ due to the concern for alternative diagnoses of aortic abnormality and also the EKG findings that did not correlate with a true ST elevation pattern. She was treated as an acute AZ and transferred expeditiously by [facility] to [facility] for acute cardiac catheterization. - Critical Care Time(min): 60 Time Includes: Direct patient care, Reassess patient, Coordinate care, Medical consult Data interpretation: Labs, CXR Procedures excluded from critical care time: EKG Departure - Departure Disposition: 02 Transfer Acute Care Hosp Clinical Impression: Acute anterior myocardial infarction Chest pain Qualifiers: Chest pain type: precordial pain Qualified Code(s): R07.2 - Precordial pain Condition: Critical Record reviewed to determine appropriate education?: Yes Discharge Date/Time: 01/25/22 10:59
[2022-01-25] MEDS ORDERED: MORPHINE 2 MG/ML CARPUJECT IVP STA ×2 (09:07→09:32)
[2022-01-25] MEDS ORDERED: NITROGLYCERIN SL 0.4 MG TABLET SL STA (09:07)
[2022-01-25] MEDS ORDERED: ONDANSETRON 4 MG/2 ML VIAL IVP STA ×2 (09:07→09:31)
[2022-01-25] MEDS ORDERED: SODIUM CHLORIDE 0.9% 1,000 ML IV STA (09:08)
[2022-01-25 09:20] LABS: BASOPHILS % (AUTO) 0.2 %; HCT - HEMATOCRIT 42.8 % (37.0-47.0); HGB - HEMOGLOBIN 14.6 g/dL (12.0-16.0); LYMPHOCYTES % (AUTO) 4.9 %; MEAN CORPUSCULAR HEMOGLOBIN 29.2 pg (27.0-31.0); MEAN CORPUSCULAR HGB CONC 34.1 g/dL (32.0-36.0); MEAN CORPUSCULAR VOLUME 85.6 fL (81.0-99.0); MEAN PLATELET VOLUME 10.3 fL (7.9-10.8); MONOCYTES # (AUTO) 0.5 10^3/uL (0.0-1.0); MONOCYTES % (AUTO) 2.6 %; NEUTROPHILS % (AUTO) 91.9 %; PLT - PLATELET COUNT 288 10^3/uL (130-450); RED CELL DISTRIBUTION WIDTH 13.1 % (12.0-15.0); WHITE BLOOD COUNT 20.7 x10^3/uL (4.8-10.8)
[2022-01-25 09:27] LABS: SLIDE REVIEW? Indicated
--- NOTE | 2022-01-25 09:29 | XRAY Report ---
PROCEDURE: Chest 1 View X-Ray INDICATIONS: Chest pain TECHNIQUE: One view of the chest was acquired. COMPARISON: 05/11/2019 FINDINGS: Surgical changes and devices: None. Lungs and pleura: No pleural effusions or pneumothorax. Extensive interstitial and alveolar pulmonar y edema. Mediastinum: Mediastinal contours appear normal. Heart size is normal. Bones and chest wall: No suspicious bony lesions. Overlying soft tissues appear unremarkable. IMPRESSION: Impressive congestive heart failure. Reviewed by: Terell Patricia MD on 01/25/2022 9:28 AM PDT Approved by: Terell Patricia MD on 01/25/2022 9:28 AM PDT Station ID: [id number]
[2022-01-25] MEDS ORDERED: FUROSEMIDE 20 MG/2 ML VIAL IVP STA (09:32)
[2022-01-25 09:34] LABS: ALBUMIN 4.1 g/dL (3.2-5.5); ALBUMIN/GLOBULIN RATIO 1.1 (1.0-2.2); BILIRUBIN,TOTAL 0.9 mg/dL (0.2-1.0); CALCIUM 9.5 mg/dL (8.5-10.3); CREATININE 0.9 mg/dL (0.4-1.0); MAGNESIUM 1.7 mg/dL (1.7-2.8); POTASSIUM 3.4 mmol/L (3.5-5.0); TOTAL PROTEIN 7.8 g/dL (6.7-8.2)
[2022-01-25 09:47] LABS: RBC MORPHOLOGY (MULTIPLE) 1+ ANISOCYTOSIS (NORMAL)
[2022-01-25 09:50] VITALS: BP 166/112
[2022-01-25] MEDS ORDERED: IOPAMIDOL-300 100 ML VIAL ONE (09:57)
[2022-01-25] MEDS ORDERED: ASPIRIN CHEW 81 MG TABLET PO STA (10:25)
[2022-01-25] MEDS ORDERED: CLOPIDOGREL 300 MG TABLET PO STA (10:25)
[2022-01-25] MEDS ORDERED: ATORVASTATIN 40 MG TABLET PO STA (10:26)
[2022-01-25] MEDS ORDERED: METOPROLOL 5 MG/5 ML VIAL IVP STA (10:26)
[2022-01-25 10:44] LABS: B. PARAPERTUSSIS- RESP PCR PAN NOT DETECTED; B. PERTUSSIS- RESP PCR PANEL NOT DETECTED; C. PNEUMONIAE- RESP PCR PANEL NOT DETECTED; CORONAVIRUS 229E-RESP PCR NOT DETECTED; CORONAVIRUS HKU1-RESP PCR NOT DETECTED; CORONAVIRUS NL63-RESP PCR NOT DETECTED; CORONAVIRUS OC43-RESP PCR NOT DETECTED; HUMAN METAPNEUMOVIRUS NOT DETECTED; INFLUENZA A- RESP PCR PANEL NOT DETECTED; INFLUENZA B - RESP PCR PANEL NOT DETECTED; M. PNEUMONIAE- RESP PCR PANEL NOT DETECTED; PARAINFLUENZA VIRUS 1 NOT DETECTED; PARAINFLUENZA VIRUS 2 NOT DETECTED; PARAINFLUENZA VIRUS 3 NOT DETECTED; PARAINFLUENZA VIRUS 4 NOT DETECTED; RHINOVIRUS/ENTEROVIRUS NOT DETECTED; RSV- RESP PCR PANEL NOT DETECTED; SARS-CoV-2 -RESP PCR PANEL NOT DETECTED
--- NOTE | 2022-01-25 10:53 | CT Report ---
PROCEDURE: ANGIO ABDOMEN/PELVIS W INDICATIONS: chest/abd pain acute CONTRAST: IV CONTRAST: Isovue 300 ml: 100 PO CONTRAST: *NO PO CONTRAST TECHNIQUE: After the administration of intravenous contrast, 2.5 mm thick sections acquired from the diaphragm t o the symphysis. 10 mm maximum-intensity projection (MIP) reformats were then acquired. For radiati on dose reduction, the following was used: automated exposure control, adjustment of mA and/or kV ac cording to patient size. COMPARISON: CT abdomen and pelvis without contrast dated 12/09/2020, CTA chest from today FINDINGS: Image quality: Excellent. Aorta: Normal caliber. Mesenteric arteries: Celiac trunk, superior and inferior mesenteric arteries appear patent. Renal arteries: There are 2 right renal arteries. The main right renal artery contains a severe proxi mal right renal artery stenosis. There are also 2 left renal arteries. The main left renal artery is patent. Right pelvic arteries: Widely patent. Left pelvic arteries: Widely patent. Extravascular soft tissues: Small bilateral pleural effusions. Minimal bibasilar atelectasis. Review of chest images demonstrates diffuse interstitial pulmonary edema and patchy bilateral developing prabhakar eolar pulmonary edema. Four-chamber cardiomegaly, most notably in the left atrium. Liver and spleen a re normal in size and enhancement. Gallbladder contains a large gallstone, as before. No gallbladder wall thickening.. Biliary system is non dilated. Pancreas enhances normally. No adrenal nodules. Kidneys are normal in size and enhancement, without hydronephrosis. There are multiple bilateral are as of mild cortical loss involving the kidneys consistent with chronic insults. Non opacified bowel l oops are normal in wall thickness and caliber. No free fluid or air. No retroperitoneal or mesenter ic adenopathy. No ventral hernias. No suspicious bony lesions. No vertebral body compression fract ures. Extensive lumbar degenerative change. IMPRESSION: 1. Congestive heart failure exacerbation. 2. Normal caliber abdominal aorta without stenosis. 3. Multiple areas of bilateral renal cortical thinning are consistent with chronic insults. 4. Severe proximal right renal artery stenosis. 5. Cholelithiasis. Reviewed by: Terell Patricia MD on 01/25/2022 10:52 AM PDT Approved by: Terell Patricia MD on 01/25/2022 10:52 AM PDT Station ID: [id number]
[2022-01-25] MEDS ORDERED: HEPARIN 5,000 UNIT/ML VIAL IVP ONE (11:00)
[2022-01-25] MEDS ORDERED: HEPARIN 25000UNITS/500ML (D5W) 25,000 UNIT/500 ML BAG IV SCH (11:00)
--- NOTE | 2022-01-25 11:05 | CT Report ---
PROCEDURE: ANGIO CHEST W/WO INDICATIONS: chest/abd pain acute CONTRAST: IV CONTRAST: Isovue 300 ml: 100 PO CONTRAST: *NO PO CONTRAST TECHNIQUE: Precontrast 5 mm thick sections acquired from the lung apices through the chest After the administrat ion of intravenous contrast, 2.5 mm thick sections again acquired from the lung apices through the ch est. 10 mm maximum intensity projection (MIP) oblique sagittal and coronal reformats were then acquir ed. For radiation dose reduction, the following was used: automated exposure control, adjustment of mA and/or kV according to patient size. COMPARISON: CTA abdomen and pelvis from today FINDINGS: Image quality: Excellent. AORTA and its attachments: Thoracic aorta is normal in caliber, measuring 3.6 cm. There is classic three-vessel arch anatomy. Gr eat vessel origins are widely patent. Celiac and SMA are widely patent. Severe origin stenosis of the right renal artery. PULMONARY ARTERIAL VASCULATURE: No acute pulmonary emboli. CHEST: Lungs and pleura: Diffuse interstitial pulmonary edema and developing patchy bilateral alveolar pulmo nary edema. Small bilateral pleural effusions. Minimal bibasilar atelectasis. Central and peripheral airways are patent and normal in caliber. Mediastinum: Four-chamber cardiomegaly, with prominent dilatation of the left atrium.. No pericardial effusion. No mediastinal or hilar adenopathy by size criteria. Central pulmonary arteries are norm al in size. Esophagus is normal in caliber. Small hiatal hernia. Bones and chest wall: No axillary adenopathy by size criteria. Thyroid gland is unremarkable as stella ged. No suspicious bony lesions. No vertebral body compression fractures. UPPER ABDOMEN: There is a severe origin stenosis of the right renal artery. Multiple areas of bilateral renal cortic al thinning are consistent with remote insults. IMPRESSION: 1. Normal caliber aorta without dissection. 2. No evidence acute pulmonary emboli. 3. Congestive heart failure. 4. Severe origin stenosis of the right renal artery. Reviewed by: Terell Patricia MD on 01/25/2022 11:04 AM PDT Approved by: Terell Patricia MD on 01/25/2022 11:04 AM PDT Station ID: [id number]
[2022-01-25] MEDS ORDERED: IOPAMIDOL-300 100 ML VIAL IVP ONE (11:09)
== END 2022-01-25 10:59 | disposition short-term general hospital (02) ==
LOC: EDUNIT# → ED 08:45
DX: I21.09 ST elevation (STEMI) myocardial infarction involving other coronary artery of anterior wall (principal); I10 Essential (primary) hypertension
CPT/HCPCS: 36415; 71045; 71275; 74174; 80053; 83690; 83735; 84484; 85025; 87633; 93005; 96374; 96375; 96376; 99285; 99291; A9270; Q9967

== ENCOUNTER 2022-06-11 08:41 | Outpatient (CLI) | payer OTHER ==
--- NOTE | 2022-06-12 11:31 | Mammography Report ---
BILATERAL DIGITAL SCREENING MAMMOGRAM 3D/2D: 06/11/2022 CLINICAL: Routine screening. Comparison is made to exams dated: 12/10/2016 mammogram, 10/15/2013 mammogram, and 12/31/2011 mammogram - [facility]. Both breasts are almost entirely fatty (category a/<25% glandular tissue). No significant masses, calcifications, or other findings are seen in either breast. There has been no significant interval change. IMPRESSION: NEGATIVE There is no mammographic evidence of malignancy. A 1 year screening mammogram is recommended. Based on the Tyrer Cuzick model (a risk assessment model) the patients lifetime risk is 3.6% and her 10 year risk is 1.7%. According to the ACR, ACS, and NCCN guidelines, an annual breast MRI exam mindy g with mammogram is recommended if the patients lifetime risk is 20% or greater. This exam was interpreted at Station ID: [id number]. NOTE: For mammograms, a report in lay terms will be sent to the patient. Approximately 15% of breast malignancies will not be visualized mammographically. In the management of a palpable breast mass, a negative mammogram must not discourage biopsy of a clinically suspicious lesion. Electronically Signed By: Bruce Manzano M.D., jr/james:06/11/2022 15:03:25 ACR BI-RADS Category 1: Negative 3341F PARENCHYMAL PATTERN: (F) - The breast(s) demonstrate(s) diffuse fatty replacement. BI-RADS CATEGORY: (1) - 1 RECOMMENDATION: (ANNUAL) - Recommend routine annual screening mammography. [id number] 1 year screening LATERALITY: (B)
== END 2022-06-11 08:42 | disposition home or self-care (01) ==
LOC: DI 08:41
PROVIDERS: ATTEND Internal Medicine
DX: Z12.31 Encounter for screening mammogram for malignant neoplasm of breast (principal)

== ENCOUNTER 2022-07-27 08:00 | Outpatient (CLI) | payer OTHER ==
[2022-07-27 17:41] LABS: POTASSIUM 4.1 mmol/L (3.5-5.0)
[2022-07-27 17:57] LABS: THYROID STIMULATING HORMONE 1.34 uIU/mL (0.34-5.60)
[2022-07-27 21:10] LABS: ESTIMATED AVERAGE GLUCOSE 126 mg/dL (70-100)
== END 2022-07-27 23:59 | disposition home or self-care (01) ==
LOC: LAB.R 08:00
PROVIDERS: ATTEND Internal Medicine
DX: I10 Essential (primary) hypertension (principal); M19.90 Unspecified osteoarthritis, unspecified site; R25.2 Cramp and spasm; F32.A Depression, unspecified; R23.2 Flushing; N95.1 Menopausal and female climacteric states; R20.0 Anesthesia of skin; I70.1 Atherosclerosis of renal artery
CPT/HCPCS: 80048; 82607; 83036; 83735; 84443

== ENCOUNTER 2022-10-19 07:02 | Outpatient (CLI) | payer OTHER ==
--- NOTE | 2022-10-19 11:44 | Ultrasound Report ---
PROCEDURE: Arterial Visceral Complete INDICATIONS: STENOSIS OF RIGHT RENAL ARTERY TECHNIQUE: Real time scanning was performed of both kidneys, followed by Color and pulsed Doppler in terrogation of the renal vessels. COMPARISON: CT angiographic abdomen pelvis 01/25/2022 FINDINGS: Aortic peak systolic velocity: 97.2 cm/s. Right side: Clay-scale imaging: Kidney is 11.0 cm long; renal cortical thickness is 0.9 cm. No hydronephrosis. No nephrolithiasis. Renal cortex is normal in echogenicity. No suspicious solid renal masses. Proximal renal artery peak systolic velocity: 440.8 cm/s. Mid renal artery peak systolic velocity: 258.8 cm/s. Distal renal artery peak systolic velocity: 105.9 cm/s. Renal vein: Patent, without thrombus. Peak renal/aortic ratio (RAR): 4.5. Left side: Clay-scale imaging: Kidney is 10.4 cm long; renal cortical thickness is 0.8 cm. No hydronephrosis. No nephrolithiasis. Renal cortex is normal in echogenicity. No suspicious solid renal masses. Proximal renal artery peak systolic velocity: 127.2 cm/s. Mid-renal artery peak systolic velocity: 104.4 cm/s. Distal renal artery peak systolic velocity: 103.5 cm/s. Renal vein: Patent, without thrombus. Peak renal/aortic ratio (RAR): 1.3. IMPRESSION: 1. Elevated velocity and renal artery/aortic ratio of the right main proximal renal artery consistent with greater than 60% stenosis. 2. No significant stenosis of the left renal artery. Reviewed by: Adam Nielson on 10/19/2022 11:42 AM [facility] Approved by: Adam Nielson on 10/19/2022 11:42 AM [facility] Station ID: [id number]
== END 2022-10-19 07:03 | disposition home or self-care (01) ==
LOC: DI 07:02
PROVIDERS: ATTEND Internal Medicine
DX: I70.1 Atherosclerosis of renal artery (principal)
CPT/HCPCS: 93975

== ENCOUNTER 2022-10-31 09:14 | Outpatient (CLI) | payer OTHER ==
--- NOTE | 2022-11-01 11:07 | Ultrasound Report ---
LIMITED ULTRASOUND OF RIGHT BREAST: 10/31/2022 CLINICAL: Focal right breast pain. Comparison is made to exams dated: 10/31/2022 mammogram, 06/11/2022 mammogram, 12/10/2016 mammogram, mammogram, and 12/31/2011 mammogram - [facility]. Ultrasound of the right breast retroareolar was performed on the area of interest. Clay scale images of the real-time examination were reviewed. IMPRESSION: NEGATIVE There is no sonographic evidence of malignancy. There is no mammographic or sonographic abnormality seen in the right breast to correspond with the p ain, however, clinical followup is recommended. A 1 year screening mammogram is recommended. Future imaging is recommended as follows: 06/12/2023 sc reening mammogram. This exam was interpreted at Station ID: [id number]. Electronically Signed By: Lashonda Harden M.D. lk/:10/31/2022 10:54:16 Ultrasound BI-RADS: 1 Negative BI-RADS CATEGORY: (1) - 1 RECOMMENDATION: (ANNUAL) - Recommend routine annual screening mammography. [id number] 1 year screening LATERALITY: (B)
--- NOTE | 2022-11-01 11:07 | Ultrasound Report ---
LIMITED ULTRASOUND OF LEFT BREAST: 10/31/2022 CLINICAL: Focal left breast pain. Comparison is made to exams dated: 10/31/2022 mammogram, 06/11/2022 mammogram, 12/10/2016 mammogram, mammogram, and 12/31/2011 mammogram - [facility]. Ultrasound of the left breast retroareolar was performed on the area of interest. Clay scale images of the real-time examination were reviewed. IMPRESSION: NEGATIVE There is no sonographic evidence of malignancy. There is no mammographic or sonographic abnormality seen in the left breast to correspond with the pa in, however, clinical followup is recommended. A 1 year screening mammogram is recommended. Future imaging is recommended as follows: 06/12/2023 sc reening mammogram. This exam was interpreted at Station ID: [id number]. Electronically Signed By: Lashonda Harden M.D. lk/:10/31/2022 10:53:38 Ultrasound BI-RADS: 1 Negative BI-RADS CATEGORY: (1) - 1 RECOMMENDATION: (ANNUAL) - Recommend routine annual screening mammography. [id number] 1 year screening LATERALITY: (B)
--- NOTE | 2022-11-01 11:07 | Mammography Report ---
BILATERAL DIGITAL DIAGNOSTIC MAMMOGRAM 3D/2D WITH SPOT COMPRESSION: 10/31/2022 CLINICAL: Focal bilateral breast pain. Comparison is made to exams dated: 12/10/2016 mammogram, 06/11/2022 mammogram, 10/15/2013 mammogram, an d 12/31/2011 mammogram - [facility]. There are scattered areas of fibroglandular density in both breasts (category b / 25%-50% glandular t issue). No significant masses, calcifications, or other findings are seen in either breast. IMPRESSION: INCOMPLETE: NEEDS ADDITIONAL IMAGING EVALUATION There is no mammographic abnormality seen in either breast to correspond with the pain, however, targ eted ultrasound of the bilateral breasts is recommended and will be performed immediately following t his exam. Future imaging is recommended as follows: 06/12/2023 screening mammogram. Based on the Tyrer Cuzick model (a risk assessment model) the patients lifetime risk is 5.2% and her 10 year risk is 2.6%. According to the ACR, ACS, and NCCN guidelines, an annual breast MRI exam mindy g with mammogram is recommended if the patients lifetime risk is 20% or greater. This exam was interpreted at Station ID: [id number]. NOTE: For mammograms, a report in lay terms will be sent to the patient. Approximately 15% of breast malignancies will not be visualized mammographically. In the management of a palpable breast mass, a negative mammogram must not discourage biopsy of a clinically suspicious lesion. Electronically Signed By: Lashonda Harden M.D. lk/:10/31/2022 10:55:50 ACR BI-RADS Category 0: Incomplete 3340F PARENCHYMAL PATTERN: (A) - The breast(s) demonstrate(s) scattered fibroglandular densities. BI-RADS CATEGORY: (0) - 0 Ultrasound [id number] Immediate follow-up LATERALITY: (B)
== END 2022-10-31 09:15 | disposition home or self-care (01) ==
LOC: DI 09:14
PROVIDERS: ATTEND Internal Medicine
DX: N64.4 Mastodynia (principal)

== ENCOUNTER 2023-10-29 14:18 | Outpatient (CLI) | payer OTHER ==
[2023-10-29 15:02] LABS: BASOPHILS % (AUTO) 0.3 %; EOSINOPHILS # (AUTO) 0.2 10^3/uL (0.0-0.7); EOSINOPHILS % (AUTO) 2.4 %; HCT - HEMATOCRIT 36.3 % (37.0-47.0); HGB - HEMOGLOBIN 11.8 g/dL (12.0-16.0); LYMPHOCYTES # (AUTO) 2.5 10^3/uL (1.5-3.5); LYMPHOCYTES % (AUTO) 39.4 %; MEAN CORPUSCULAR HEMOGLOBIN 29.4 pg (27.0-31.0); MEAN CORPUSCULAR HGB CONC 32.5 g/dL (32.0-36.0); MEAN CORPUSCULAR VOLUME 90.3 fL (81.0-99.0); MEAN PLATELET VOLUME 9.4 fL (7.9-10.8); MONOCYTES # (AUTO) 0.4 10^3/uL (0.0-1.0); MONOCYTES % (AUTO) 6.6 %; NEUTROPHILS # (AUTO) 3.2 10^3/uL (1.5-6.6); NEUTROPHILS % (AUTO) 51.1 %; PLT - PLATELET COUNT 227 10^3/uL (130-450); RED BLOOD COUNT 4.02 10^6/uL (4.20-5.40); RED CELL DISTRIBUTION WIDTH 12.9 % (12.0-15.0); WHITE BLOOD COUNT 6.2 x10^3/uL (4.8-10.8)
[2023-10-29 15:11] LABS: PT - PROTHROMBIN TIME 11.2 secs (9.9-12.6)
[2023-10-29 15:23] LABS: ALBUMIN 4.2 g/dL (3.2-5.5); ALKALINE PHOSPHATASE 65 IU/L (42-121); ALT ALANINE AMINOTRANSFERASE 9 IU/L (10-60); AST ASPARTATE AMINOTRANSFERASE 14 IU/L (10-42); BILIRUBIN,DIRECT < 0.10 mg/dL (0.03-0.18); BILIRUBIN,TOTAL 0.4 mg/dL (0.2-1.0); BUN - BLOOD UREA NITROGEN 15 mg/dL (6-20); CALCIUM 9.5 mg/dL (8.5-10.3); CARBON DIOXIDE - CO2 28 mmol/L (21-32); CHLORIDE 104 mmol/L (101-111); CREATININE 1.1 mg/dL (0.6-1.3); GFR - MDRD 50 (>89); GLUCOSE 91 mg/dL (74-104); POTASSIUM 4.1 mmol/L (3.5-4.5); SODIUM 137 mmol/L (135-145)
--- NOTE | 2023-10-29 15:44 | XRAY Report ---
PROCEDURE: Hand 1-2V BL INDICATIONS: JOINT PAIN TECHNIQUE: 3 views of the hand(s) acquired. COMPARISON: None. FINDINGS: Bones: No fractures or dislocations. No suspicious bony lesions. Moderate first CMC degenerative narrowing with subchondral sclerosis and minimal periarticular osteophytes are present bilaterally sl ightly more prominent on the left. Otherwise, minimal scattered IP narrowing is present bilaterally. No definitive erosions are present. Soft tissues: No suspicious soft tissue calcifications or masses. IMPRESSION: Prominent bilateral first CMC arthritic changes as above. Reviewed by: Yael Vargas MD on 10/29/2023 3:43 PM PST Approved by: Yael Vargas MD on 10/29/2023 3:43 PM PST Station ID: [id number]
[2023-10-29 16:33] LABS: THYROID STIMULATING HORMONE 0.82 uIU/mL (0.34-5.60)
--- NOTE | 2023-10-29 17:48 | XRAY Report ---
PROCEDURE: Foot 1-2V BL INDICATIONS: JOINT PAIN TECHNIQUE: 2 views of the foot were acquired. COMPARISON: None. FINDINGS: Bones: No fractures or dislocations. Postsurgical changes are noted in left first and second metata rsal head and neck region. No gross hardware loosening or failure. Moderate to severe bilateral midfo ot joint osteoarthritic changes are seen most notably involving TMT joints. Left worse than right jolie ateral MTP joint and interphalangeal joint osteoarthritic changes also seen more notably involving le ft first and second MTP joints. Well-defined of bilateral plantar calcaneal enthesophytes are noted. Soft tissues: No suspicious soft tissue calcifications or masses. IMPRESSION: 1. Postsurgical changes in left first and second toe. No gross hardware loosening or failure. 2. 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 No acute fracture or dislocation. Reviewed by: Kevon Garcia MD on 10/29/2023 5:47 PM PST Approved by: Kevon Garcia MD on 10/29/2023 5:47 PM PST Station ID: [id number]
[2023-10-30 07:10] LABS: HCV AB Non Reactive (Non Reactive); HIV SCREEN 4TH GENERATION Non Reactive (Non Reactive)
[2023-10-30 08:10] LABS: HBsAG SCREEN Negative (Negative); HEPATITIS A TOTAL AB Negative (Negative); HEPATITIS B CORE IGM AB Negative (Negative); HEPATITIS B SURFACE AB QUANT <3.1 mIU/mL (Immunity>9.9)
[2023-10-31 13:10] LABS: ANTINUCLEAR ANTIBODIES IFA Negative (.); ATYPICAL pANCA <1:20 titer (Neg:<1:20); CYTOPLASMIC (C-ANCA) <1:20 titer (Neg:<1:20); PERINUCLEAR (P-ANCA) <1:20 titer (Neg:<1:20)
== END 2023-10-29 14:19 | disposition home or self-care (01) ==
LOC: LAB 14:18
PROVIDERS: ATTEND Emergency Medicine
DX: M25.50 Pain in unspecified joint (principal); R76.8 Other specified abnormal immunological findings in serum; F11.20 Opioid dependence, uncomplicated
CPT/HCPCS: 36415; 80048; 80076; 81599; 84439; 84443; 85025; 85610; 85651; 86037; 86038; 86140; 86317; 86704; 86705; 86708; 86709; 86780; 86803; 87340; 87389

== ENCOUNTER 2023-12-19 07:23 | Outpatient (CLI) | payer OTHER ==
--- NOTE | 2023-12-19 12:20 | Ultrasound Report ---
PROCEDURE: Pelvic w/Transvaginal INDICATIONS: ABN VAG BLEED TECHNIQUE: Real-time scanning was performed of the pelvic organs, with image documentation. The patient refused transvaginal scanning. COMPARISON: Ultrasound pelvis, 03/30/2016. CT angiogram of abdomen and pelvis, 01/25/2022 FINDINGS: Uterus: Uterus is anteverted and normal in size at 6.9 x 3.6 x 5.2 cm. The myometrium is heterogene ous. The endometrium measures 7 mm in combined thickness. Echogenic foci at the junctional zone sug gesting calcification. There is a 1.3 x 2.3 x 2.5 cm subserosal fibroid in the right posterior uterin e wall. A 1.1 cm calcified nodule in the left anterior lower uterine wall, probably a small calcified fibroid. Ovaries: The right ovary measures 1.7 x 1.6 x 1.5 cm, with a calculated ovarian volume of 2.1 cc. T he left ovary measures 1.8 x 1.3 x 0.9 cm, with a calculated ovarian volume of 1.1 cc. The ovaries h ave a normal sonographic appearance. Less than 12 follicles can be seen in each ovary. No adnexal m asses are seen. No cystic lesions measuring greater than 3 cm. Other: No pathologic free abdominal or pelvic fluid. IMPRESSION: 1. Endometrium is thickened for a postmenopausal woman. Recommend gynecological follow-up and endomet rial sampling if clinically indicated. 2. Myomatous uterus with uterine fibroids. 3. Unremarkable ovaries. Reviewed by: Marin Paredes MD on 12/19/2023 12:19 PM PDT Approved by: Marin Paredes MD on 12/19/2023 12:19 PM PDT Station ID: [id number]
== END 2023-12-19 07:24 | disposition home or self-care (01) ==
LOC: DI 07:23
PROVIDERS: ATTEND Internal Medicine
DX: R93.89 Abnormal findings on diagnostic imaging of other specified body structures (principal); D25.2 Subserosal leiomyoma of uterus

== ENCOUNTER 2023-12-19 07:24 | Outpatient (CLI) | payer OTHER ==
--- NOTE | 2023-12-20 11:34 | Mammography Report ---
BILATERAL DIGITAL SCREENING MAMMOGRAM 3D/2D: 12/19/2023 CLINICAL: Routine screening. Comparison is made to exams dated: 10/31/2022 mammogram, 06/11/2022 mammogram, and 12/10/2016 mammogram - [facility]. There are scattered areas of fibroglandular density in both breasts (category b / 25%-50% glandular t issue). No significant masses, calcifications, or other findings are seen in either breast. There has been no significant interval change. IMPRESSION: NEGATIVE There is no mammographic evidence of malignancy. A 1 year screening mammogram is recommended. Based on the Tyrer Cuzick model (a risk assessment model) the patient's lifetime risk is 4.9% and her 10 year risk is 2.6%. According to the ACR, ACS, and NCCN guidelines, an annual breast MRI exam mindy g with mammogram is recommended if the patient's lifetime risk is 20% or greater. This exam was interpreted at Station ID: [id number]. NOTE: For mammograms, a report in lay terms will be sent to the patient. Approximately 15% of breast malignancies will not be visualized mammographically. In the management of a palpable breast mass, a negative mammogram must not discourage biopsy of a clinically suspicious lesion. Electronically Signed By: Sha yu/james:12/19/2023 08:46:02 letter sent: No_Letter ACR BI-RADS Category 1: Negative 3341F PARENCHYMAL PATTERN: (A) - The breast(s) demonstrate(s) scattered fibroglandular densities. BI-RADS CATEGORY: (1) - 1 RECOMMENDATION: (ANNUAL) - Recommend routine annual screening mammography. [id number] 1 year screening LATERALITY: (B)
== END 2023-12-19 07:25 | disposition home or self-care (01) ==
LOC: DI 07:24
PROVIDERS: ATTEND Internal Medicine
DX: Z12.31 Encounter for screening mammogram for malignant neoplasm of breast (principal); R92.323 Mammographic fibroglandular density, bilateral breasts

== ENCOUNTER 2024-01-22 11:12 | Outpatient (CLI) | payer OTHER ==
--- NOTE | 2024-01-22 14:26 | XRAY Report ---
PROCEDURE: Knee 3V RT INDICATIONS: RIGHT KNEE PAIN TECHNIQUE: 3 views of the knee(s) were acquired. COMPARISON: None. FINDINGS: Bones: No fractures or dislocations. No suspicious bony lesions. [id number] tricompartmental knee joint degeneration. Soft tissues: Trace knee joint effusion. No suspicious soft tissue calcifications or masses. IMPRESSION: Mild to moderate degenerative joint disease. Reviewed by: Marin Paredes MD on 01/22/2024 2:25 PM PDT Approved by: Marin Paredes MD on 01/22/2024 2:25 PM PDT Station ID: [id number]
== END 2024-01-22 11:13 | disposition home or self-care (01) ==
LOC: DI 11:12
PROVIDERS: ATTEND Internal Medicine
DX: M17.11 Unilateral primary osteoarthritis, right knee (principal)